=== PATIENT | male | born 1960 | race Caucasian/White ===

== ENCOUNTER 2018-03-24 15:02 | Emergency (ER) | payer BC ==
[~2018-03-24] VITALS: Ht 167.6 cm; Wt 71.4 kg
[~2018-03-24 15:02] MED LIST: CLBCRM30 EXT; PRED20TA PO; SKINCRE34 TOP
[2018-03-24 15:06] VITALS: TEMP 37.2; Ht 167.6 cm; Wt 71.4 kg
[2018-03-24] MEDS ORDERED: LORAZEPAM 2 MG/ML 1 ML VIAL IV STA ×2 (15:14→16:12)
[2018-03-24] MEDS ORDERED: MULTI-VITAMIN INFUSION INJ 10 ML, THIAMINE HCL INJ 100 MG, FoLIC ACID INJ 1 MG in SODIU... IV ONE (15:15)
[2018-03-24 15:33] LABS: BASO % 0.8 %; BASO ABS # 0.08 K/uL (0-0.2); EOS % 0.4 %; EOS ABS # 0.04 K/uL (0-0.5); HEMATOCRIT 43.2 % (42-52); HEMOGLOBIN 14.8 g/dL (14.0-18.0); IG# 0.03 K/uL (0.00-0.02); LYMPH % 13.4 %; LYMPH ABS # 1.31 K/uL (1.2-3.4); MEAN CELL VOLUME 91.7 fL (80-100); MEAN CORPUSCULAR HEMOGLOBIN 31.4 pg (25-34); MEAN CORPUSCULAR HGB CONC 34.3 g/dl (32-36); MEAN PLATELET VOLUME 8.6 fL (7.4-10.4); MONO % 9.9 %; MONO ABS # 0.97 K/uL (0.11-0.59); NEUT % 75.2 %; NEUT ABS # 7.38 K/uL (1.4-6.5); PLATELET COUNT 225 K/uL (130-400); RED CELL DISTRIBUTION WIDTH CV 15.4 % (11.5-14.5); RED CELL DISTRIBUTION WIDTH SD 52.2 fL (36.4-46.3); WHITE BLOOD COUNT 9.81 K/uL (4.8-10.8)
[2018-03-24 15:44] LABS: PTT PATIENT 26.1 SECONDS (21.0-31.0)
--- NOTE | 2018-03-24 16:00 | DIAGNOSTIC IMAGING REPORT ---
HEAD WITHOUT CONTRAST (CT) CLINICAL HISTORY: 57 years-old Male presenting with tremors eval for mass. TECHNIQUE: Multidetector CT imaging of the head was performed without the use of intravenous contrast. IV contrast: None. A dose lowering technique was used consistent with the principles of ALARA (as low as reasonably achievable). COMPARISON: 05/14/2008. CT DOSE (mGy.cm): The estimated cumulative dose is 537.48 mGy.cm. FINDINGS: Outside Repairer Special topogram: Unremarkable. Ventricles and sulci normal in size. Brain parenchyma normal in appearance with preserved granados-white differentiation. No mass effect or midline shift. No hemorrhage or acute territorial infarct. No extra-axial fluid collection. Paranasal sinuses and mastoid air cells clear. Calvarium intact. IMPRESSION: 1. No acute intracranial abnormality. Electronically signed by: Alejandro Soni M.D. 03/24/2018 3:59 PM Dictated Date/Time: 03/24/2018 3:57 PM
[2018-03-24 16:03] LABS: CALCIUM 8.5 mg/dl (8.5-10.1); CREATININE 0.91 mg/dl (0.60-1.40); POTASSIUM 4.2 mmol/L (3.5-5.1); TOTAL PROTEIN 8.1 gm/dl (6.4-8.2)
[2018-03-24] MEDS ORDERED: CHLORDIAZEPOXIDE 25 MG CAP PO ONE (16:15)
--- NOTE | 2018-03-24 17:37 | EMERGENCY ROOM VISIT NOTE ---
History Report prepared by Anand: Promise Adkins Under the Supervision of: Dr. Rolly Kuhn M.D. First contact with patient: 15:07 Chief Complaint: OTHER COMPLAINT Stated Complaint: LOWER EXTREMITIES/TREMORS History of Present Illness The patient is a 57 year old male who presents to the Emergency Room with complaints of worsening shakiness that started this morning when he woke up. The patient states that he has had shaking in his upper extremities for at least 10 years, but it got worse this morning when he woke up to the point where he could not drink his beer. He also states that he started experiencing slight shakiness in his legs, which he normally does not have. The patient denies numbness, one-sided weakness, shortness of breath, chest pain, abdominal pain, fever, difficulty swallowing, and headaches. The patient states that he drinks alcohol and had 1 beer today. Per nurse, the patient normally drinks 3-4 quarts per day. The patient notes that his uncle has Parkinson's disease. Source of History: patient, nursing staff Onset: this morning Position: arm (bilateral), leg (bilateral) Quality: other (shaking) Timing: worsening Associated Symptoms: No fevers, No headache, No chest pain, No SOB, No abdominal pain, No weakness (one-sided), No numbness Note: Denies: difficulty swallowing Review of Systems See HPI for pertinent positives & negatives. A total of 10 systems reviewed and were otherwise negative. Past Medical & Surgical Medical Problems: (1) ALCOHOL ABUSE-CONTINUOUS (2) CANNABIS ABUSE-UNSPEC (3) Cholecystectomy (4) FAM HX-ISCHEM HEART DIS (5) FAMILY HISTORY OF OTHER CARDIOVASCULAR DISEASES (6) History of tonsillectomy (7) TOBACCO USE DISORDER Family History FHx: Parkinson's disease Social History Smoking Status: Current Every Day Smoker Alcohol Use: heavy Drug Use: marijuana Marital Status: single Occupation Status: employed Current/Historical Medications No Active Prescriptions or Reported Meds Allergies Coded Allergies: Morphine (Verified Allergy, Intermediate, SYNCOPE, 03/24/18) Physical Exam Vital Signs Date Time Temp Pulse Resp B/P (MAP) Pulse Ox O2 Delivery O2 Flow Rate FiO2 03/24/18 16:31 83 19 138/78 92 Room Air 03/24/18 16:19 93 17 139/79 94 Room Air 03/24/18 15:40 94 26 143/73 92 Room Air 03/24/18 15:29 96 03/24/18 15:06 37.2 104 18 150/100 94 Room Air Physical Exam Constitutional: Vital signs reviewed. Eyes: Pupils are equal round reactive to light. Conjunctiva are noninjected. ENT: Pharynx is clear without erythema or exudate. Mucous membranes are moist. Neck supple without meningeal signs. Respiratory: Clear to auscultation bilaterally. Breath sounds are equal bilaterally. Cardiovascular: Regular rate and rhythm. No rubs or gallops. GI: Soft, nondistended and nontender. Bowel sounds are present. Musculoskeletal: No peripheral edema. No lower extremity tenderness. Integumentary: No cyanosis. Neurological: The patient is awake and alert. Cranial nerves II-XII are intact. Motor is 5 out of 5 all extremities. Sensation is intact to light touch all extremities. Normal speech. No pronator drift. Upper extremity limb ataxia. Resting tremor in upper extremities. Slight tremor in the feet. Asterixis. Psychiatric: Anxious appearing. Medical Decision & Procedures ER Provider Diagnostic Interpretation: Radiology results as stated below per my review and the radiologist's interpretation: HEAD WITHOUT CONTRAST (CT) CLINICAL HISTORY: 57 years-old Male presenting with tremors eval for mass. TECHNIQUE: Multidetector CT imaging of the head was performed without the use of intravenous contrast. IV contrast: None. A dose lowering technique was used consistent with the principles of ALARA (as low as reasonably achievable). COMPARISON: 05/14/2008. CT DOSE (mGy.cm): The estimated cumulative dose is 537.48 mGy.cm. FINDINGS: Shuttle Driver topogram: Unremarkable. Ventricles and sulci normal in size. Brain parenchyma normal in appearance with preserved granados-white differentiation. No mass effect or midline shift. No hemorrhage or acute territorial infarct. No extra-axial fluid collection. Paranasal sinuses and mastoid air cells clear. Calvarium intact. IMPRESSION: 1. No acute intracranial abnormality. Electronically signed by: Alejandro Soni M.D. 03/24/2018 3:59 PM Dictated Date/Time: 03/24/2018 3:57 PM Laboratory Results 03/24/18 15:24 Red Blood Count 4.71, Mean Corpuscular Volume 91.7, Mean Corpuscular Hemoglobin 31.4, Mean Corpuscular Hemoglobin Concent 34.3, Mean Platelet Volume 8.6, Neutrophils (%) (Auto) 75.2, Lymphocytes (%) (Auto) 13.4, Monocytes (%) (Auto) 9.9, Eosinophils (%) (Auto) 0.4, Basophils (%) (Auto) 0.8, Neutrophils # (Auto) 7.38, Lymphocytes # (Auto) 1.31, Monocytes # (Auto) 0.97, Eosinophils # (Auto) 0.04, Basophils # (Auto) 0.08 03/24/18 15:24 Test 03/24/18 15:23 03/24/18 15:24 Prothrombin Time 10.5 SECONDS (9.0-12.0) Prothromb Time International Ratio 1.0 (0.9-1.1) Activated Partial Thromboplast Time 26.1 SECONDS (21.0-31.0) Partial Thromboplastin Ratio 1.0 Ammonia 14.4 umol/L (11-32) White Blood Count 9.81 K/uL (4.8-10.8) Red Blood Count 4.71 M/uL (4.7-6.1) Hemoglobin 14.8 g/dL (14.0-18.0) Hematocrit 43.2 % (42-52) Mean Corpuscular Volume 91.7 fL (80-100) Mean Corpuscular Hemoglobin 31.4 pg (25-34) Mean Corpuscular Hemoglobin Concent 34.3 g/dl (32-36) Platelet Count 225 K/uL (130-400) Mean Platelet Volume 8.6 fL (7.4-10.4) Neutrophils (%) (Auto) 75.2 % Lymphocytes (%) (Auto) 13.4 % Monocytes (%) (Auto) 9.9 % Eosinophils (%) (Auto) 0.4 % Basophils (%) (Auto) 0.8 % Neutrophils # (Auto) 7.38 K/uL (1.4-6.5) Lymphocytes # (Auto) 1.31 K/uL (1.2-3.4) Monocytes # (Auto) 0.97 K/uL (0.11-0.59) Eosinophils # (Auto) 0.04 K/uL (0-0.5) Basophils # (Auto) 0.08 K/uL (0-0.2) RDW Standard Deviation 52.2 fL (36.4-46.3) RDW Coefficient of Variation 15.4 % (11.5-14.5) Immature Granulocyte % (Auto) 0.3 % Immature Granulocyte # (Auto) 0.03 K/uL (0.00-0.02) Anion Gap 8.0 mmol/L (3-11) Est Creatinine Clear Calc Drug Dose 79.8 ml/min Estimated GFR () 107.3 Estimated GFR (Non- 92.6 BUN/Creatinine Ratio 10.0 (10-20) Calcium Level 8.5 mg/dl (8.5-10.1) Magnesium Level 2.3 mg/dl (1.8-2.4) Total Bilirubin 0.4 mg/dl (0.2-1) Direct Bilirubin 0.1 mg/dl (0-0.2) Aspartate Amino Transf (AST/SGOT) 37 U/L (15-37) Alanine Aminotransferase (ALT/SGPT) 40 U/L (12-78) Alkaline Phosphatase 112 U/L (45-117) Total Protein 8.1 gm/dl (6.4-8.2) Albumin 4.0 gm/dl (3.4-5.0) Lipase 129 U/L (73-393) Thyroid Stimulating Hormone (TSH) 0.463 uIu/ml (0.300-4.500) Ethyl Alcohol mg/dL < 3.0 mg/dl (0-3) Laboratory results as reviewed by me. Medications Administered Medications (Trade) Dose Ordered Sig/Ilya Route Start Time Stop Time Status Last Admin Dose Admin Lorazepam (Ativan Inj) 1 mg NOW STAT IV 03/24/18 15:14 03/24/18 15:16 DC 03/24/18 15:29 1 MG Multivitamins 10 ml/Thiamine HCl 100 mg/Folic Acid 1 mg/Sodium Chloride 1,011.2 ml @ 500 mls/ hr Q2H2M ONCE IV 03/24/18 15:15 03/24/18 17:16 DC 03/24/18 15:40 500 MLS/HR Chlordiazepoxide (Librium Cap) 50 mg NOW ONCE PO 03/24/18 16:15 03/24/18 16:16 DC 03/24/18 16:07 50 MG Lorazepam (Ativan Inj) 1 mg NOW STAT IV 8/18/18 16:12 03/24/18 16:13 DC 03/24/18 16:25 1 MG ED Course 1509: The patient was evaluated in room A11B. A complete history and physical exam was performed. 1514: Administered Ativan Inj 1 mg IV. 1515: Administered Multivitamins 10 ml/Thiamine HCl 100 mg/Folic Acid 1 mg/ Sodium Chloride 1011.2 ml @ 500 mls/hr IV. 1556: I checked on the patient but he was not in the room. The nurse stated that the Ativan helped his tremors. 1605: I checked on the patient and found him sitting comfortably and watching TV. He appeared to have mild tremors in his upper extremities. I told the patient that he is probably withdrawing from alcohol. The patient stated that he has no interest in detoxification or rehabilitation. The patient noted that he just wants to go home and drink. I recommended the patient follow up with his PCP for reevaluation. 1612: Administered Ativan Inj 1 mg IV. 1615: Administered Librium Cap 50 mg PO. 1625: I checked on the patient and updated him on his results. The patient again declined detoxification or rehabilitation. The patient will go home as soon as his fluids are done. Medical Decision This is a 57-year-old male who presents with tremors. Differential diagnosis includes alcohol withdrawal, hepatic encephalopathy, Wernicke Korsakoff, intracranial mass, intracranial hemorrhage, simple partial seizure, metabolic derangement, Parkinson's disease. I did perform a limited focused review of portions of the patient's old chart on the electronic medical record. The patient has had no recent pertinent visits to this hospital. I did evaluate the patient as noted above. The patient is dependent on alcohol and states that he could not drink very much today because he had such bad tremors. He has had tremors for over 10 years. They got worse this morning. On exam is neurologically intact other than significant tremors causing upper limb ataxia. IV access was established. The patient was placed on a continuous residential monitor. I did treat him with Ativan IV. He is also given a banana bag IV. I did order and personally review the patient's 12-lead EKG as described above. I did order and review the patient's blood work as noted in the electronic medical record. LFTs are normal. Ammonia is not elevate. Alcohol level is undetectable. I did order a CT of the head. I did review the images myself as well as the radiology report as described above. CT does not show any evidence of mass or acute abnormality. I did discuss the test results with the patient. His tremors are improved but still present. He appears quite comfortable. Is watching television. He is slightly hypertensive but he does not show signs of delirium tremens. I did treat him with additional Ativan 1 mg IV and Librium 50 mg orally. I did offer admission for detox or referral to rehab. Patient declined stating that he did not want to quit drinking alcohol. He was advised to follow-up closely with his doctor for further evaluation of his tremors. He was discharged in good condition. Medication Reconcilliation Current Medication List: was personally reviewed by me Blood Pressure Screening Patient's blood pressure: Elevated blood pressure Blood pressure disposition: Referred to PCP Impression Primary Impression: Tremor Additional Impressions: Alcohol withdrawal Alcohol dependence Scribe Attestation The scribe's documentation has been prepared under my direct and personally reviewed by me in its entirety. I confirm that the note above accurately reflects all work, treatment, procedures, and medical decision making performed by me. Departure Information Dispostion Home / Self-Care Prescriptions No Active Prescriptions or Reported Meds Referrals Mey Herman D.O. (PCP) Forms HOME CARE DOCUMENTATION FORM, IMPORTANT VISIT INFORMATION, WORK / SCHOOL INSTRUCTIONS Patient Instructions My [facility] Additional Instructions You have been examined and treated today on an emergency basis only. This is not a substitute for, or an effort to provide, complete comprehensive medical care. It is impossible to recognize and treat all injuries or illnesses in a single emergency department visit. It is therefore important that you follow up closely with your physician to determine the cause of your symptoms. Call as soon as possible for an appointment. Return for worsening symptoms or if you develop fever, vomiting, hallucinations, confusion or any other concerning symptoms. Problem Qualifiers Additional Impressions: Alcohol withdrawal Complication of substance-induced condition: uncomplicated Qualified Codes: F10.230 - Alcohol dependence with withdrawal, uncomplicated Alcohol dependence Substance use status: in withdrawal Complication of substance-induced condition: uncomplicated Qualified Codes: F10.230 - Alcohol dependence with withdrawal, uncomplicated
[2018-03-24 18:01] VITALS: BP 144/81; PULSE 80; O2SAT 96
== END 2018-03-24 18:28 | disposition home or self-care (01) ==
LOC: EDBD 15:02 → C.EDA 15:04
DX: R25.1 Tremor, unspecified (principal); F10.230 Alcohol dependence with withdrawal, uncomplicated; Z82.0 Family history of epilepsy and other diseases of the nervous system; F17.200 Nicotine dependence, unspecified, uncomplicated; Z88.6 Allergy status to analgesic agent

== ENCOUNTER 2018-10-05 13:34 | Inpatient (IN) ==
[2018-10-05] MEDS ORDERED: PIPERACILL/TAZOBAC CONSULT ACTIVE PRN ×2 (14:23→17:13)
[2018-10-05] MEDS ORDERED: PIPERACILLIN/TAZOBACTAM 4.5 GM/120 ML BAG IV ONE (14:23)
[2018-10-05] MEDS ORDERED: SODIUM CHLORIDE 0.9% 1000ML 1,000 ML IV ONE (14:25)
--- NOTE | 2018-10-05 15:53 | History & Physical Report ---
Date of Service October 05, 2018 Assessment & Plan (1) Abscess of sigmoid colon due to diverticulitis: - CT with severe sigmoid diverticulitis with evidence of microperforation and small peridiverticular abscesses with largest measuring 28 mm - Likely this started approx. 3 weeks ago with the onset of the symptoms as he also had N/V and leukocytosis - currently no leukocytosis and remains afebrile - Zosyn Q8H; BCx pending - Pain management with Tylenol and Dilaudid PRN - NPO for now with sips/chips - Gen Surg consulted - discussed with Dr. Reyes - recommend limited po intake for 3-4 days with rescan prior to D/C; possible hospitalization x 5-7 days and if worsening symptoms may need temporary colostomy Present on Admission?: Yes (2) Alcohol abuse: - Reports drinking a couple drafts at the club nightly and usually takes 2 quarts home each night - denies H/O ETOH withdrawal or seizures - last drink was 6 PM on 10/04 - AWSS protocol with banana bag x 1 then resume NSS at 80 mL/hr - Will start folic acid 1 mg daily and thiamine 100 mg daily in AM - Gabapentin taper given heavy ETOH use - will use reduced dosing - Currently no active signs of withdrawal - has a chronic tremor x "years" thought to be ETOH induced Present on Admission?: Yes (3) Tremor: - ETOH induced vs essential - reports FMHx of Parkinsons but was told he does not exhibit this - Not on any medications to control this - no intervention necessary at this time Present on Admission?: Yes (4) Smoking: - Did not want a nicotine patch but states he would ask for one if needed - will place PRN Present on Admission?: Yes History of Present Illness Chief Complaint: Abdominal pain x few weeks Primary Care Provider: Mey Herman DO Mr. Kaur is a 58 y/o male with PMHx of Tremor and ETOH Abuse who presents for abdominal pain and CT findings. Pt reports he has had LLQ abdominal pain for approximately 3 weeks and reports associated diarrhea. He was seen in the ED around this time and symptomatically treated. States symptoms waxed and waned since this time. States he has been able to eat normally and denies nausea/vomiting. Has had intermittent diarrhea but sometimes it is formed but soft. He denies melena/hematochezia. Last BM was early this AM. Due to ongoing s ymptoms his PCP ordered a CT scan. CT showed severe sigmoid diverticulitis with evidence of microperferation and small peridiverticular abscesses largest being 28 mm and was referred to the ED. He reports pain in the LLQ without radiation. He denies fever/chills. He reports drinking "a couple drafts at the club" and normally goes home with "a couple quarts" of beer and this is normally a nightly thing. He states he has never experienced withdrawal from ETOH or seizure activity. He reports he has gone a few days without drinking in the past without issue. Last drink was around 6 PM on 10/04. Has a chronic tremor x "years" but does not appear to be actively withdrawing at this time. Allergies Allergy/AdvReac Type Severity Reaction Status Date / Time morphine Allergy Intermediate SYNCOPE Verified 10/05/18 15:53 Home Medications Home Medications Medication Instructions Recorded Confirmed Type No Known Home Medications 10/05/18 10/05/18 History Past Med/Surg History Medical History Tremor (Chronic) Surgical History History of cholecystectomy (Resolved) History of tonsillectomy Family History Other No significant family history Social History Preferred Language: Bulgarian Communication Ability: Effective Human Factors Specialist Required: No Beliefs That Will Affect Care: None Current Living Situation: Other Current Living Situation Comment: has roommate Other Information That Helps Us Care for You: No Feels Safe at Home: Yes Safety Concerns: Feels Safe At This Time Smoking Status: Current every day smoker Hx Alcohol Use: Yes Hx Substance Use: No Review of Systems Constitutional: no fever, no chills and no anorexia Eyes: no worsening vision Ear, Nose, Mouth, Throat: no nasal congestion, no sore throat and no dysphagia Respiratory: no cough and no dyspnea Cardiovascular: no chest pain, no palpitations and no edema Gastrointestinal: + abdominal pain, + bloating and + diarrhea/loose stools; no nausea, no vomiting, no constipation, no blood in stools and no melena Genitourinary (Male): no dysuria Musculoskeletal: no muscle weakness and no body aches Integumentary: no rash Neurologic: + tremor(s) Psychiatric: + substance abuse Physical Exam Vital Signs (Past 24 Hours): Last Vital Signs Temp 36.8 C 10/05/18 13:54 Pulse 68 10/05/18 15:20 Resp 22 10/05/18 15:20 BP 113/66 10/05/18 15:08 Pulse Ox 95 10/05/18 15:20 Constitutional: no acute distress, not ill appearing and not intoxicated appearing Eyes: + anicteric sclerae ENMT: Ears: no hearing impairment Throat: uvula midline Neck: trachea midline Respiratory: normal respiratory effort, lungs clear to auscultation no cough Cardiovascular: RRR, no murmur, no edema Gastrointestinal (Abdomen): Inspection/Auscultation: normal bowel sounds Percussion/Palpation: + abdomen tender (LLQ) and abdomen soft; no guarding and abdomen not rigid Musculoskeletal: Head/Neck/Chest: normocephalic, head atraumatic and neck supple Skin: no rashes, warm and dry Neurologic: moves all extremities Motor/Sensory: + tremor (b/l hands/arms and legs) Psychiatric: A+Ox3, euthymic affect Apperance: + disheveled Eye Contact: good eye contact Affect: no anxious affect Mood: no anxious mood Code Status & VTE Plan Code Status FULL RESUSCITATION VTE Prophylaxis Plan VTE Prophylaxis will be ordered: Yes Supervising Physician Co-Signing Physician Notes Attending Attestation - Pt seen/examined, chart reviewed, admission care plan d/w KATHARINA Valle. I agree w/ the sandoval components of her admission documentation. 58yo male with h/o alcohol dependence - denies any prior episode of withdrawal - presenting with LLQ abd pain x [address] abd/pelvis done just prior to admission with severe sigmoid diverticulitis w/ microperforation and several small abscesses. Already seen by gen surg - plan for zosyn, bowel rest, IVF. During my visit he complained of is NPO status. Also w/ c/o mild LLQ pain & diarrhea. PMH, PSH, allergies, meds, sochx, famxh, ros - reviewed VSS, no fever gen - thin, NAD mouth - poor oral dentition heart - RRR, s1, s2 lungs - CTA b/l abd - soft, tender LLQ (mild), BS+, no HSM ext - no edema CT results reviewed labs reviewed A/P: 1. severe sigmoid diverticulitis - complicated by microperforation & abscesses. Agree with NPO, fluids, zosyn, gen surg consultation. 2. alcohol dependence - high risk of withdrawal. Place on withdrawal protocol w/ gabapentin. MVI, thiamine, folic acid. Baudilio Hurd MD
--- NOTE | 2018-10-05 15:57 | Surgery Consultation ---
Date of Consultation October 05, 2018 Assessment & Plan (1) Diverticulitis: Patient will be admitted to the hospital for IV antibiotics IV fluids and bowel rest. I do not think he should have significant p.o. intake for 3-4 days. If he were to worsen and require surgery is likely he would need a temporary colostomy. We will likely re-scan him prior to discharge to be sure the pelvic infection is improving. I suspect he will be in the hospital for 5-7 days and require at least 2-3 weeks of antibiotics. I will asked the infectious disease doctors to see the patient tomorrow. I will follow him closely during his hospitalization. History of Present Illness History of Present Illness Patient is a 58-year-old male who presents the emergency room with lower abdominal pain. A CT scan was performed which shows relatively severe diverticulitis of the sigmoid colon with contained perforation and 2.8 cm abscess. His white blood cell count is 8.5. There is no evidence of obstruction. He was in the emergency room approximately 1 month ago with lower abdominal pain. Patient is being admitted to the hospital with diverticulitis. Allergies Allergy/AdvReac Type Severity Reaction Status Date / Time morphine Allergy Intermediate SYNCOPE Verified 10/05/18 15:53 Home Medications Home Medications Medication Instructions Recorded Confirmed Type No Known Home Medications 10/05/18 10/05/18 History Patient History Medical History Tremor (Chronic) Surgical History History of cholecystectomy (Resolved) Family History Other No significant family history Social History Preferred Language: Frisian Feels Safe at Home: Yes Smoking Status: Current every day smoker Hx Alcohol Use: Yes Review of Systems No complaint of fever or headache please see HPI for positive review of systems 10 other systems are negative Physical Exam Vital Signs (Past 24 Hours): Last Vital Signs Temp 36.8 C 10/05/18 13:54 Pulse 68 10/05/18 15:20 Resp 22 10/05/18 15:20 BP 113/66 10/05/18 15:08 Pulse Ox 95 10/05/18 15:20 he is awake and alert he is in no distress he does complain of some lower abdominal pain. His vital signs are stable his heart rate is normal his HEENT exam is grossly normal neck is supple he is breathing comfortably heart regular rate and rhythm his abdomen is flat and soft does have pain to deep palpation in the lower pelvis extremities are warm
[2018-10-05] MEDS ORDERED: ACETAMINOPHEN 325 MG TAB PO PRN (17:13)
[2018-10-05] MEDS ORDERED: MAGNESIUM HYDROXIDE SUSP 30 ML UDC PO PRN (17:13)
[2018-10-05] MEDS ORDERED: ACETAMINOPHEN 65 ML IV PRN (17:13)
[2018-10-05] MEDS ORDERED: ONDANSETRON INJ 2 MG/ML 2 ML VIAL IV PRN (17:13)
[2018-10-05] MEDS ORDERED: ALUMINUM/MAGNESIUM SUSP 30 ML UDC PO PRN (17:13)
[2018-10-05] MEDS ORDERED: POLYETHYLENE (MIRALAX) 17 GM PACK PO PRN (17:13)
[2018-10-05] MEDS ORDERED: NICOTINE 21 MG/24 HR TDSY TD PRN (17:13)
[2018-10-05] MEDS ORDERED: HYDROmorphone INJ 0.5 MG/0.5 ML SYR IV PRN ×2 (17:13→19:11)
[2018-10-05] MEDS ORDERED: GABAPENTIN 600MG ALCOHOL WITHDRAWAL LOAD PO STA (17:13)
[2018-10-05] MEDS ORDERED: LORazepam 1 MG/2 ML VIAL IV PRN (17:13)
[2018-10-05] MEDS ORDERED: GABAPENTIN 600 MG TAB PO ONE (18:00)
[2018-10-05] MEDS ORDERED: MULTI-VITAMIN INFUSION 10 ML, THIAMINE HCL 100 MG, FOLIC ACID 1 MG in SODIUM CHLORIDE 0... IV SCH (18:00)
[2018-10-05 18:59] LABS: Creatinine Clr Calc Pharmacy 152.7 ml/min; Est GFR (Non-African American) 121.7
[2018-10-05] MEDS: SODIUM CHLORIDE 0.9% 1000ML 1,000 ML IV SCH (20:56)
[2018-10-05] MEDS: PIPERACILLIN/TAZOBACTAM 3.375 GM in DEXTROSE 5% 100 ML IV SCH (20:57)
--- NOTE | 2018-10-05 21:12 | Emergency Department Note ---
Entered by Stacy Schroeder acting as a scribe for Davy Bojorquez MD History of Present Illness General Chief complaint: Abdominal Pain Stated complaint: INFECTION IN COLON, SENT FROM CT Time Seen by Provider: 10/05/18 14:21 Source: patient Mode of arrival: ambulatory Limitations: no limitations History of Present Illness Provider complaint: Abd pain Onset (ago): week(s) 2 Location: abdomen Severity: moderate Pain Consistency: + constant Maximum Pain Intensity: 7 Associated symptoms: + denies other symptoms and + other (bowel changes, urinary sx); no chest pain and no fever/chills Treatments prior to arrival: none The patient is a 58 year old white male w/ PMHx of tremors and cholecystectomy who presents to the ED w/ CC of abd pain beginning a few weeks ago. Abd pain is lower, moderate in severity and constant since onset. He shares that he went to his PCP today for blood work and CT scan, before sent over to ED for additional evaluation. He denies any fevers, chills, CP, bowel changes, urinary sx, nausea, vomiting, or any other sx at this time. He notes that he has is allergic to morphine. Patient lastly shares regular alcohol and tobacco use. 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 and A total of 10 systems reviewed and were otherwise negative Physical Exam Vital Signs Vital Signs - 24 hr 10/05/18 13:54 10/05/18 14:29 10/05/18 15:08 Temperature 36.8 C Temperature Source Oral Sepsis Recent Fever Within 48 Hours No Sepsis New/Unexplained Change in Mental Status No Sepsis Action Taken by Nursing No Action Required Pulse Rate 103 H 68 68 Pulse Rate from SpO2 Sensor 68 Respiratory Rate 18 18 21 Respiratory Effort / Characteristics Non-Labored Respiratory Depth Normal Respiratory Pattern Regular Blood Pressure 101/67 100/74 113/66 Blood Pressure Mean 78 82 81 Blood Pressure Position Sitting Pulse Oximetry 99 94 Oxygen Delivery Method Room Air 10/05/18 15:10 10/05/18 15:20 10/05/18 15:30 Temperature Temperature Source Sepsis Recent Fever Within 48 Hours Sepsis New/Unexplained Change in Mental Status Sepsis Action Taken by Nursing Pulse Rate 68 68 80 Pulse Rate from SpO2 Sensor 68 68 79 Respiratory Rate 19 22 22 Respiratory Effort / Characteristics Respiratory Depth Respiratory Pattern Blood Pressure 112/71 Blood Pressure Mean 84 Blood Pressure Position Pulse Oximetry 95 95 97 Oxygen Delivery Method 10/05/18 15:40 10/05/18 15:50 10/05/18 15:59 Temperature Temperature Source Sepsis Recent Fever Within 48 Hours Sepsis New/Unexplained Change in Mental Status Sepsis Action Taken by Nursing Pulse Rate 69 68 Pulse Rate from SpO2 Sensor 70 68 Respiratory Rate 24 14 Respiratory Effort / Characteristics Respiratory Depth Respiratory Pattern Regular Blood Pressure Blood Pressure Mean Blood Pressure Position Pulse Oximetry 97 96 Oxygen Delivery Method Room Air 10/05/18 16:00 Temperature Temperature Source Sepsis Recent Fever Within 48 Hours Sepsis New/Unexplained Change in Mental Status Sepsis Action Taken by Nursing Pulse Rate 70 Pulse Rate from SpO2 Sensor 69 Respiratory Rate 21 Respiratory Effort / Characteristics Respiratory Depth Respiratory Pattern Blood Pressure 108/87 Blood Pressure Mean 94 Blood Pressure Position Pulse Oximetry 97 Oxygen Delivery Method GENERAL: Well appearing, well nourished, NAD, non-toxic. EYE EXAM: Normal conjunctiva. PERRL, no anisocoria and EOM's grossly intact w/o pain. OROPHARYNX: Moist MM. Poor dentition NECK: Supple, no nuchal rigidity, no adenopathy, non-tender. No signs of meningismus. LUNGS: Clear to auscultation. Normal chest wall mechanics. HEART: NSR, no MRG. ABDOMEN: Abdomen soft, normo-active bowel sounds, no masses, no rebound or guarding. LLQ TTP. BACK: No CVA TTP. SKIN: No rashes and no bruising. UPPER EXTREMITIES: Upper extremities are grossly normal. LOWER EXTREMITIES: No pitting edema. No calf pain. NEURO EXAM: A and O x3. GCS 15. Cranial nerves II-XII grossly intact, normal speech, 5/5 strength throughout Moves all 4 extremities on command w/o issue. Course 1427: Past medical records reviewed. The patient was evaluated in room C11B, and a complete history and physical examination were performed. 1503: Discussed with Dr. Reyes, general sugery 1508: Discussed with Dr. Reyes who notes he does not need IR draining, but recommends admission and abx 1513: [facility] Hospitalist paged. 1518: Discussed with Wanda Hodges PA-C who accepts patient for admission. Administered Medications Piperacillin Sod/Tazobactam (Sod 3.375 gm/ Dextrose) 115 mls @ 28.75 mls/hr IV Q8H RASHAD Stop: 10/15/18 20:59 Last Admin: 10/05/18 20:57 Dose: 28.8 mls/hr Documented by: [id number] Sodium Chloride (Nss 1000ml) 1,000 mls @ 80 mls/hr IV .[id number] RASHAD Stop: 11/04/18 19:59 Last Admin: 10/05/18 20:56 Dose: 80 mls/hr Documented by: [id number] Miscellaneous (Remove Nicoderm Patch) 1 ea N/A HS RASHAD Stop: 11/04/18 20:59 Last Admin: 10/05/18 20:56 Dose: Not Given Documented by: [id number] Discontinued Medications Gabapentin (Neurontin) 600 mg PO NOW ONE Stop: 10/05/18 18:01 Last Admin: 10/05/18 17:52 Dose: 600 mg Documented by: [id number] Piperacillin Sod/Tazobactam Sod (Zosyn) 4.5 gm in 120 mls @ 240 mls/hr IV NOW ONE Stop: 10/05/18 14:52 Last Infusion: 10/05/18 15:58 Dose: 0 mls/hr Documented by: [id number] Admin: 10/05/18 15:07 Dose: 240 mls/hr Documented by: [id number] Sodium Chloride (Nss 1000ml) 1,000 mls @ 999 mls/hr IV .Q1H1M ONE Stop: 10/05/18 15:25 Last Infusion: 10/05/18 16:13 Dose: 0 mls/hr Documented by: [id number] Admin: 10/05/18 15:09 Dose: 999 mls/hr Documented by: [id number] Multivitamins 10 ml/ Thiamine HCl 100 mg/ Folic Acid 1 mg/Sodium Chloride 1,011.2 mls @ 500 mls/hr IV .Q2H2M RASHAD Stop: 10/05/18 20:01 Last Admin: 10/05/18 18:38 Dose: 500 mls/hr Documented by: [id number] Miscellaneous Information (Consult) 1 ea N/A UD PRN PRN Reason: Consult Stop: 11/04/18 14:22 Last Admin: 10/05/18 15:09 Dose: 1 ea Documented by: [id number] Medical Decision Making Medical Records Attestation: I reviewed the patient's medical records. Home Medications Current Medication List: was personally reviewed by me Laboratory Data Attestation: I reviewed the patient's lab results. Result diagrams: 10/05/18 17:53 Lab Results 10/05/18 10/05/18 Range/Units 17:53 17:53 Creatinine 0.47 L (0.6-1.4) mg/dl Est Cr Clr Drug Dosing 152.7 ml/min Est GFR ( Amer) 141.0 Est GFR (Non-Af Amer) 121.7 Hepatitis C Ab Screen Neg (Neg) Imaging Data Radiologist's Impression: PREVIOUS CT OF ABD & PELVIS CT abd pelvis oral and IV con CLINICAL HISTORY: LLQ ABD PAIN AND DIARRHEA COMPARISON STUDY: 06/30/2008 TECHNIQUE: The patient was scanned following administration of dilute oral contrast, and in a dynamic helical fashion during intravenous administration of 93 cc of Optiray 320 A dose lowering technique was utilized adhering to the principles of ALARA. CT DOSE: 673.88 mGycm FINDINGS: Lower chest: The heart is normal in size and configuration, without pericardial effusion. The lung bases and pleural spaces are clear. Liver: There is a 5 mm hypodensity within the left liver anterolaterally. This is too small to characterize but is likely benign. Gallbladder: Surgically absent Spleen: Normal in size and attenuation. Pancreas: Unremarkable. Adrenal glands: Unremarkable. Kidneys: There is a 1 cm right renal cyst. There is a 24 mm left renal cyst. There is no hydronephrosis. Bowel: There are no transition zones indicate bowel obstruction. There is colo drew diverticulosis. There is sausage like thickening of the sigmoid colon. There is infiltration the perisigmoid fat. There are tiny gas bubbles within the mesentery. There are small pericolonic fluid collections consistent with peridiverticular abscesses. There is also a 22 mm fluid collection within. Rectal space likely representing a second abscess. The largest collection measures 28 mm. The appendiceal tip is somewhat bulbous, but this likely secondary to adjacent inflammation.. Peritoneum: There is no evidence for significant ascites. Vasculature: The abdominal aorta is normal in course and caliber. Adenopathy: None. Pelvic viscera: There is mild bladder wall thickening. There is minor prostamegaly. Skeletal structures: No destructive osseous lesions are seen. IMPRESSION: 1. Severe sigmoid diverticulitis with evidence of microperforation and small peridiverticular abscesses. Electronically signed by: Hari Cr M.D. 10/05/2018 1:17 PM Blood Pressure Blood Pressure Findings: Normal blood pressure MDM Narrative The patient is a 58 year old white male w/ PMHx of tremors and cholecystectomy who presents to the ED w/ CC of abd pain beginning a few weeks ago. Etiologies such as appendicitis, diverticulitis, PUD, biliary pathology, UTI, pancreatitis, obstruction, mesenteric ischemia, aortic pathology, infections, inflammatory bowel disease, renal colic, as well as others were entertained. Patient was seen and evaluated the bedside. The patient was relating that he was referral for chronic abdominal pain. Patient did have a CT ordered that showed diverticulitis patient already did have blood work completed having a normal white count. The patient's vital signs are stable afebrile. Patient does have some left lower abdominal discomfort on exam. Blood cultures Zosyn and IV fluids were ordered. I did have the general surgeon review the patient's CT. Dr. Reyes does not believe the patient requires surgical intervention or interventional radiology drainage at this time. I did speak with the on-call hospitalist who agreed to further evaluate treat the patient. Patient was subsequently admitted to the medicine service with a general surgery consult. Impression & Plan Abscess of sigmoid colon due to diverticulitis, Encounter for smoking cessation counseling Discharge Plan Visit Data *Final* Discharge Date/Time: 10/05/18 16:15 Chief Complaint: Abdominal Pain Stated Complaint: INFECTION IN COLON, SENT FROM CT ED Provider: Davy Bojorquez Discharge Problem: Abscess of sigmoid colon due to diverticulitis, Encounter for smoking cessation counseling Patient Disposition: Admitted As Inpatient Discharge Instructions Interventions: ED Discharge Assessment Last Done: 10/05/18 16:15 The scribe's documentation has been prepared under my direction and personally reviewed by me in its entirety. I confirm that the note above accurately reflects all work, treatment, procedures, and medical decision making performed by me.
[2018-10-06] MEDS: GABAPENTIN 100 MG CAP PO SCH ×2 (00:19→05:19)
[2018-10-06] MEDS: PIPERACILLIN/TAZOBACTAM 3.375 GM in DEXTROSE 5% 100 ML IV SCH ×3 (05:19→21:13)
[2018-10-06 07:09] LABS: Hematocrit (blood only) 36.1 % (42-52); Hemoglobin 11.8 g/dL (14.0-18.0); Mean Corpuscular Hgb Conc 32.7 g/dL (32-36); Mean Corpuscular Volume 91.6 fL (80-100); Mean Platelet Volume 8.3 fL (7.4-10.4); Platelet Count 407 K/uL (130-400); RDW Coefficient of Variation 14.2 % (11.5-14.5); RDW Standard Deviation 47.8 fL (36.4-46.3); Red Blood Count 3.94 M/uL (4.7-6.1); White Blood Count 8.92 K/uL (4.8-10.8)
--- NOTE | 2018-10-06 07:25 | Progress Note ---
Date of Service October 06, 2018 Assessment & Plan (1) Abscess of sigmoid colon due to diverticulitis: cont ice only- very limited po intake- will adv very slowly- cont iv ATBX- MAY BENEFIT for 1-2 weeks- considering PICC line - with abscess. ID to see for suggestions Subjective afeb- pt seemed to be comfortable sleeping most of night no significant pain med Physical Exam Vital Signs (Past 24 Hours): Last Vital Signs Temp 36.8 C 10/05/18 22:50 Pulse 64 10/05/18 22:50 Resp 16 10/05/18 22:50 BP 133/72 10/05/18 22:50 Pulse Ox 97 10/05/18 22:50 resting comfortably no acute chgs
[2018-10-06 07:42] LABS: BUN Creatinine Ratio 7.2 (10-20); Calcium 8.1 mg/dl (8.5-10.1); Creatinine Clr Calc Pharmacy 125.9 ml/min; Est GFR (African American) 130.3; Est GFR (Non-African American) 112.4; Potassium 3.5 mmol/L (3.5-5.1)
[2018-10-06] MEDS: FOLIC ACID 1 MG TAB PO SCH (09:33)
[2018-10-06] MEDS: SODIUM CHLORIDE 0.9% 1000ML 1,000 ML IV SCH ×2 (09:33→21:12)
[2018-10-06] MEDS: THIAMINE HCL 100 MG TAB PO SCH (09:33)
--- NOTE | 2018-10-06 11:09 | Infectious Disease Consult ---
Date of Consultation October 06, 2018 Assessment & Plan (1) Abscess of sigmoid colon due to diverticulitis: continue zosyn, follow blood cultures. If pt require surgery, would obtain intaoperative culture. If no + cultures and pt does not require surgery would suggest transition to po augmentin 875mg po bid x 14 days. Alternative would be Levaquin and Flagyl but would attempt to avoid flagyl with active daily etoh use. History of Present Illness Attending Physician: Baudilio Hurd pt admitted with 3 weeks of lower abd pain, LLQ/flank pain. denies f/c at home, no n/v/d, no decreased appetite. was seen by pcp and ct abd obtained, found to have sigmoid diveriticulitis and multiple small abscesses, largest measuring 2.8cm. also found to have microperforation. wbc nml. blood cultures obtained, pending. surgery eval yesterday, no plans for OR unless clinical worsening, repeat ct pending. placed on zosyn, tolerating well. asking to eat, states pain much improved today. h/o etoh abuse, no signs withdrawal on exam. no cp, sob, cough, no gu symptoms. 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 Beliefs That Will Affect Care: None Current Living Situation: Other Current Living Situation Comment: has roommate Other Information That Helps Us Care for You: No Feels Safe at Home: Yes Safety Concerns: Feels Safe At This Time Smoking Status: Current every day smoker Hx Alcohol Use: Yes Hx Substance Use: No Review of Systems all remaining ros reviewed and are negative Physical Exam Vital Signs (Past 24 Hours): Last Vital Signs Temp 36.6 C 10/06/18 07:00 Pulse 93 H 10/06/18 07:00 Resp 15 10/06/18 07:00 BP 115/74 10/06/18 07:00 Pulse Ox 91 10/06/18 07:00 Constitutional: WD/WN, vitals as above Eyes: PERRL, conjunctivae normal, anicteric sclerae ENMT: external ear and nose normal, oropharynx normal Mouth: + poor dentition Neck: normal visual inspection Respiratory: normal respiratory effort, lungs clear to auscultation Cardiovascular: RRR, no murmur, no edema Gastrointestinal (Abdomen): normal bowel sounds, soft, nontender, no hepatos plenomegaly Inspection/Auscultation: abdomen normal to inspection Percussion/Palpation: abdomen soft Musculoskeletal: no cyanosis or clubbing, extremities motor strength 5/5 Skin: no rashes, warm and dry Psychiatric: A+Ox3, euthymic affect
--- NOTE | 2018-10-06 14:32 | Hospitalist Progress Note ---
Date of Service October 06, 2018 Assessment & Plan (1) Abscess of sigmoid colon due to diverticulitis: - CT with severe sigmoid diverticulitis with evidence of microperforation and small peridiverticular abscesses with largest measuring 28 mm - Zosyn IV for empiric coverage; ID following. - Pain control: Tylenol and Dilaudid prn. - Strict NPO with ice sips/chips. - Gen Surg consulted, appreciate input. (2) Alcohol abuse: - Reports drinking a couple drafts at the club nightly and usually takes 2 quarts home each night; denies h/o ETOH withdrawal. - AWSS protocol; received banana bag on 10/05/18. - Folic acid 1 mg daily and Thiamine 100 mg daily in AM - Continue Gabapentin taper given heavy ETOH use. 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 (3) Tremor: - ETOH induced vs essential. - Not currently receiving medication for symptoms. (4) Smoking: - Nicotine patch ordered prn -- pt. was refusing but stated he wanted to smoke a cigarette today. (5) DVT prophylaxis: - Hold pharmacologic ppx for possible procedure. Dispo: Continue NPO status and IV abx. Supervising Physician Co-Signing Physician Notes Attending Attestation - Pt seen/examined, chart reviewed, care plan d/w KATHARINA Marcelo. I agree w/ the sandoval components of her documentation. Pt feels better. LLQ abd pain "much better". +flatus, +loose stool. VSS no fever gen - a/o x 3, no signs of etoh withdrawal heart - RRR lungs - CTA b/l abd - soft, scant tenderness LLQ, BS+, no HSM ext - no edema A/P: severe, complicated diverticulitis with microperf & abscess(es) - clinically improved. cont IV zosyn, fluids, pain meds. cont gabapentin protocol for etoh dependence. appreciate ID & gen surg input. Baudilio Hurd MD Subjective Pt is doing well overall today; he is very frustrated due to NPO status. States he is very hungry and would like to eat. Explained indication for being NPO. Has bilateral tremors, states they are not worsening since being admitted. Physical Exam Vital Signs (Past 24 Hours): Last Vital Signs Temp 36.6 C 10/06/18 07:00 Pulse 93 H 10/06/18 07:00 Resp 15 10/06/18 07:00 BP 115/74 10/06/18 07:00 Pulse Ox 91 10/06/18 07:00 Physical Exam: General: Resting comfortably in no apparent distress; A&OX3 HEENT: NC/AT; PERRLA with EOMI; [place] conjunctiva, MMM. Neck: Supple and nontender Cardiac: RRR w/o murmurs, gallops or rubs Lungs: CTA bilaterally; No rhonchi, wheezing, or rales Abdomen: Bowel normoactive X 4; Nontender to palpation Extremities: Warm. No edema present Neuro: No focal weakness Skin: No rash Results & Data Laboratory Results 10/06/18 10/06/18 10/05/18 Range/Units 06:54 06:54 17:53 WBC 8.92 (4.8-10.8) K/uL RBC 3.94 L (4.7-6.1) M/uL Hgb 11.8 L (14.0-18.0) g/dL Hct 36.1 L (42-52) % MCV 91.6 (80-100) fL MCH 29.9 (25-34) pg MCHC 32.7 (32-36) g/dL RDW Std Deviation 47.8 H (36.4-46.3) fL RDW Coeff of Bret 14.2 (11.5-14.5) % Plt Count 407 H (130-400) K/uL MPV 8.3 (7.4-10.4) fL Sodium 137 (136-145) mmol/L Potassium 3.5 (3.5-5.1) mmol/L Chloride 102 (98-107) mmol/L Carbon Dioxide 29 (21-32) mmol/L Anion Gap 6.0 (3-11) BUN 4 L (7-18) mg/dl Creatinine 0.57 L 0.47 L (0.6-1.4) mg/dl Est Cr Clr Drug Dosing 125.9 152.7 ml/min Est GFR ( Amer) 130.3 141.0 Est GFR (Non-Af Amer) 112.4 121.7 BUN/Creatinine Ratio 7.2 L (10-20) Glucose 84 (70-99) mg/dl Calcium 8.1 L (8.5-10.1) mg/dl Hepatitis C Ab Screen (Neg) 10/05/18 Range/Units 17:53 WBC (4.8-10.8) K/uL RBC (4.7-6.1) M/uL Hgb (14.0-18.0) g/dL Hct (42-52) % MCV (80-100) fL MCH (25-34) pg MCHC (32-36) g/dL RDW Std Deviation (36.4-46.3) fL RDW Coeff of Bret (11.5-14.5) % Plt Count (130-400) K/uL MPV (7.4-10.4) fL Sodium (136-145) mmol/L Potassium (3.5-5.1) mmol/L Chloride (98-107) mmol/L Carbon Dioxide (21-32) mmol/L Anion Gap (3-11) BUN (7-18) mg/dl Creatinine (0.6-1.4) mg/dl Est Cr Clr Drug Dosing ml/min Est GFR ( Amer) Est GFR (Non-Af Amer) BUN/Creatinine Ratio (10-20) Glucose (70-99) mg/dl Calcium (8.5-10.1) mg/dl Hepatitis C Ab Screen Neg (Neg)
[2018-10-07] MEDS: PIPERACILLIN/TAZOBACTAM 3.375 GM in DEXTROSE 5% 100 ML IV SCH ×3 (04:56→21:40)
[2018-10-07 06:37] LABS: Hematocrit (blood only) 37.5 % (42-52); Hemoglobin 12.2 g/dL (14.0-18.0); Mean Corpuscular Hgb Conc 32.5 g/dL (32-36); Mean Corpuscular Volume 91.5 fL (80-100); Mean Platelet Volume 8.2 fL (7.4-10.4); Platelet Count 402 K/uL (130-400); RDW Coefficient of Variation 13.9 % (11.5-14.5); RDW Standard Deviation 46.6 fL (36.4-46.3); White Blood Count 11.36 K/uL (4.8-10.8)
--- NOTE | 2018-10-07 06:43 | Progress Note ---
Date of Service October 07, 2018 Assessment & Plan (1) Abscess of sigmoid colon due to diverticulitis: try clear liquids for lunch- do not advance diet cont IV atbx- consider for 1 week- CT later this week Subjective afeb, min pain- Hungry vatals stable- ++flatus and bm good ur output Physical Exam Vital Signs (Past 24 Hours): Last Vital Signs Temp 36.7 C 10/06/18 23:33 Pulse 75 10/06/18 23:33 Resp 17 10/06/18 23:33 BP 123/77 10/06/18 23:33 Pulse Ox 95 10/06/18 23:33 abd- soft, min pain- good bowel sounds
[2018-10-07 07:12] LABS: BUN Creatinine Ratio 5.7 (10-20); Creatinine Clr Calc Pharmacy 135.4 ml/min; Est GFR (African American) 134.2; Est GFR (Non-African American) 115.8; Magnesium 2.2 mg/dl (1.8-2.4); Potassium 3.5 mmol/L (3.5-5.1)
[2018-10-07] MEDS: THIAMINE HCL 100 MG TAB PO SCH (08:41)
[2018-10-07] MEDS: FOLIC ACID 1 MG TAB PO SCH (08:41)
[2018-10-07] MEDS: SODIUM CHLORIDE 0.9% 1000ML 1,000 ML IV SCH (09:34)
[2018-10-07] MEDS ORDERED: GABAPENTIN 600 MG TAB PO SCH (16:13)
--- NOTE | 2018-10-07 18:25 | Hospitalist Progress Note ---
Date of Service October 07, 2018 Assessment & Plan (1) Abscess of sigmoid colon due to diverticulitis: - CT with severe sigmoid diverticulitis with evidence of microperforation and small peridiverticular abscesses with largest measuring 28 mm - Zosyn IV for empiric coverage; ID following. - Pain control: Tylenol and Dilaudid prn. - Advanced to CLD today; will d/c IVFs. - Gen Surg consulted, appreciate input. (2) Alcohol abuse: - Reports drinking a couple drafts at the club nightly and usually takes 2 quarts home each night; denies h/o ETOH withdrawal. - AWSS protocol; received banana bag on 10/05/18. - Folic acid 1 mg daily and Thiamine 100 mg daily in AM - Continue Gabapentin taper given heavy ETOH use. 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 (3) Tremor: - ETOH induced vs essential. - Not currently receiving medication for symptoms. (4) Smoking: - Nicotine patch ordered prn -- pt. was refusing. (5) DVT prophylaxis: - Hold pharmacologic ppx. Dispo: Discharge pending improvement in PO intake/advancing diet. Supervising Physician Co-Signing Physician Notes Attending Attestation - Chart reviewed in detail, care plan d/w KATHARINA Marcelo. I agree w/ the sandoval components of her documentation. Pt remains hemodynamically stable and is improving with conservative measures (fluids, abx, etc) for complicated sigmoid diverticulitis (microperf, abscess, etc). Appreciate gen surg assistance. Diarrhea not unusual with diverticulitis but if it worsens consider c. diff testing. Baudilio Hurd MD Subjective Pt. is doing well today. He states abd pain resolved, tolerated CLD for lunch. Denies nausea/vomiting. Is having diarrhea. Review of Systems All systems reviewed & are unremarkable except as noted in HPI & below Constitutional: no fever, no chills and no weakness Respiratory: no cough and no dyspnea Cardiovascular: no chest pain, no palpitations and no edema Gastrointestinal: + diarrhea/loose stools; no abdominal pain, no nausea, no vomiting and no constipation Genitourinary (Male): no difficulty urinating Musculoskeletal: no joint pain and no myalgia Allergy / Immunological: no rash Physical Exam Vital Signs (Past 24 Hours): Last Vital Signs Temp 36.8 C 10/07/18 15:09 Pulse 61 10/07/18 15:09 Resp 18 10/07/18 15:09 BP 118/76 10/07/18 15:09 Pulse Ox 95 10/07/18 15:09 Physical Exam: General: Resting comfortably in no apparent distress; A&OX3 HEENT: NC/AT; PERRLA with EOMI; [place] conjunctiva, MMM. Neck: Supple and nontender Cardiac: RRR w/o murmurs, gallops or rubs Lungs: CTA bilaterally; No rhonchi, wheezing, or rales Abdomen: Bowel normoactive X 4; Nontender to palpation Extremities: Warm. No edema present Neuro: No focal weakness Skin: No rash Results & Data Laboratory Results 10/07/18 10/07/18 Range/Units 06:24 06:24 WBC 11.36 H (4.8-10.8) K/uL RBC 4.10 L (4.7-6.1) M/uL Hgb 12.2 L (14.0-18.0) g/dL Hct 37.5 L (42-52) % MCV 91.5 (80-100) fL MCH 29.8 (25-34) pg MCHC 32.5 (32-36) g/dL RDW Std Deviation 46.6 H (36.4-46.3) fL RDW Coeff of Bret 13.9 (11.5-14.5) % Plt Count 402 H (130-400) K/uL MPV 8.2 (7.4-10.4) fL Sodium 136 (136-145) mmol/L Potassium 3.5 (3.5-5.1) mmol/L Chloride 100 (98-107) mmol/L Carbon Dioxide 26 (21-32) mmol/L Anion Gap 10.0 (3-11) BUN 3 L (7-18) mg/dl Creatinine 0.53 L (0.6-1.4) mg/dl Est Cr Clr Drug Dosing 135.4 ml/min Est GFR ( Amer) 134.2 Est GFR (Non-Af Amer) 115.8 BUN/Creatinine Ratio 5.7 L (10-20) Glucose 74 (70-99) mg/dl Calcium 8.0 L (8.5-10.1) mg/dl Magnesium 2.2 (1.8-2.4) mg/dl
[2018-10-08] MEDS: PIPERACILLIN/TAZOBACTAM 3.375 GM in DEXTROSE 5% 100 ML IV SCH ×3 (05:22→21:02)
[2018-10-08] MEDS ORDERED: GABAPENTIN 400 MG CAP PO SCH (06:00)
[2018-10-08 06:40] LABS: Hematocrit (blood only) 39.1 % (42-52); Hemoglobin 12.7 g/dL (14.0-18.0); Mean Corpuscular Hgb Conc 32.5 g/dL (32-36); Mean Corpuscular Volume 92.4 fL (80-100); Mean Platelet Volume 8.6 fL (7.4-10.4); Platelet Count 432 K/uL (130-400); RDW Coefficient of Variation 14.3 % (11.5-14.5); RDW Standard Deviation 47.9 fL (36.4-46.3); Red Blood Count 4.23 M/uL (4.7-6.1); White Blood Count 7.71 K/uL (4.8-10.8)
[2018-10-08 07:04] LABS: BUN Creatinine Ratio 4.8 (10-20); Creatinine Clr Calc Pharmacy 112.1 ml/min; Est GFR (African American) 124.2; Est GFR (Non-African American) 107.2; Potassium 3.9 mmol/L (3.5-5.1)
[2018-10-08] MEDS: FOLIC ACID 1 MG TAB PO SCH (08:47)
[2018-10-08] MEDS: THIAMINE HCL 100 MG TAB PO SCH (08:47)
--- NOTE | 2018-10-08 12:04 | Surgery Progress Note ---
Date of Service October 08, 2018 Assessment & Plan (1) Abscess of sigmoid colon due to diverticulitis: WBC back to normal keep on clears for today cont IV atbx CT later this week Subjective tolerating clears, having loose/liquid BMs, denies pain, no fevers/chills Physical Exam Vital Signs (Past 24 Hours): Last Vital Signs Temp 36.2 C L 10/08/18 07:38 Pulse 64 10/08/18 07:38 Resp 14 10/08/18 07:38 BP 118/74 10/08/18 07:38 Pulse Ox 92 10/08/18 07:38 Gastrointestinal (Abdomen): Inspection/Auscultation: abdomen not distended Percussion/Palpation: abdomen soft; abdomen nontender
--- NOTE | 2018-10-08 14:35 | Hospitalist Progress Note ---
Date of Service October 08, 2018 Assessment & Plan (1) Abscess of sigmoid colon due to diverticulitis: - CT with severe sigmoid diverticulitis with evidence of microperforation and small peridiverticular abscesses with largest measuring 28 mm - Zosyn IV for empiric coverage; ID following. - Pain control: Tylenol and Dilaudid prn. - Continue CLD; no IVFs indicated. - Gen Surg consulted, appreciate input. Will need CT later this week. (2) Alcohol abuse: - Reports drinking a couple drafts at the club nightly and usually takes 2 quarts home each night; denies h/o ETOH withdrawal. - AWSS protocol; received banana bag on 10/05/18. - Folic acid 1 mg daily and Thiamine 100 mg daily in AM - Continue Gabapentin taper given heavy ETOH use. 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 (3) Tremor: - ETOH induced vs essential. - Not currently receiving medication for symptoms. (4) Smoking: - Nicotine patch ordered prn. (5) DVT prophylaxis: - Hold pharmacologic ppx. Dispo: Discharge pending advancing diet. Surgery following. Supervising Physician Co-Signing Physician Notes Attending Attestation - Chart reviewed in detail, care plan d/w PA Mercedez Marcelo. I agree w/ the sandoval components of her documentation. Pt with continued clinical improvement of complicated sigmoid diverticulitis. Gen surg managing diet advancement. Remains on IV antibiotics. Vitals stable, labs acceptable. Again if diarrhea frequency worsens then consider c diff testing. No signs of alcohol withdrawal despite history of alcohol dependence. Baudilio Hurd MD Subjective Pt. is stable, has been tolerating a CLD. No advancement of diet today per surgery recs. Has diarrhea. Denies abd pain, N/V. Review of Systems All systems reviewed & are unremarkable except as noted in HPI & below Constitutional: no fever, no chills, no fatigue, no weakness and no anorexia Respiratory: no cough and no dyspnea Cardiovascular: no chest pain, no palpitations and no edema Gastrointestinal: + diarrhea/loose stools; no abdominal pain, no nausea, no vomiting and no constipation Genitourinary (Male): no difficulty urinating Musculoskeletal: no joint pain Allergy / Immunological: no rash Physical Exam Vital Signs (Past 24 Hours): Last Vital Signs Temp 36.2 C L 10/08/18 07:38 Pulse 64 10/08/18 07:38 Resp 14 10/08/18 07:38 BP 118/74 10/08/18 07:38 Pulse Ox 92 10/08/18 07:38 Physical Exam: General: Resting comfortably in no apparent distress HEENT: NC/AT; PERRLA with EOMI; [place] conjunctiva, MMM. Neck: Supple and nontender Cardiac: RRR Lungs: CTA bilaterally Abdomen: Bowel normoactive X 4; Nontender to palpation Extremities: Warm. No edema present Neuro: No focal weakness Skin: No rash Results & Data Laboratory Results 10/08/18 10/08/18 Range/Units 05:54 05:54 WBC 7.71 (4.8-10.8) K/uL RBC 4.23 L (4.7-6.1) M/uL Hgb 12.7 L (14.0-18.0) g/dL Hct 39.1 L (42-52) % MCV 92.4 (80-100) fL MCH 30.0 (25-34) pg MCHC 32.5 (32-36) g/dL RDW Std Deviation 47.9 H (36.4-46.3) fL RDW Coeff of Bret 14.3 (11.5-14.5) % Plt Count 432 H (130-400) K/uL MPV 8.6 (7.4-10.4) fL Sodium 140 (136-145) mmol/L Potassium 3.9 (3.5-5.1) mmol/L Chloride 105 (98-107) mmol/L Carbon Dioxide 31 (21-32) mmol/L Anion Gap 4.0 (3-11) BUN 3 L (7-18) mg/dl Creatinine 0.64 (0.6-1.4) mg/dl Est Cr Clr Drug Dosing 112.1 ml/min Est GFR ( Amer) 124.2 Est GFR (Non-Af Amer) 107.2 BUN/Creatinine Ratio 4.8 L (10-20) Glucose 91 (70-99) mg/dl Calcium 8.0 L (8.5-10.1) mg/dl
--- NOTE | 2018-10-08 15:46 | Infectious Disease Progress Nt ---
Date of Service October 08, 2018 Assessment & Plan (1) Abscess of sigmoid colon due to diverticulitis: sPatient with diverticulitis with abscess, to be continued on IV antibiotics, to remain n.p.o. for now. If outpatient IV therapy desired, may want to consider use of ertapenem. For now we will continue on Zosyn. Follow- up CT later this week. Will follow. Subjective Patient seen in follow-up for diverticulitis. Feeling better, tolerating clear liquid diet. No fever, no increase in abdominal pain. Review of Systems All systems reviewed & are unremarkable except as noted in HPI & below Physical Exam Vital Signs (Past 24 Hours): Last Vital Signs Temp 36.5 C 10/08/18 14:49 Pulse 64 10/08/18 14:49 Resp 16 10/08/18 14:49 BP 94/63 L 10/08/18 14:49 Pulse Ox 97 10/08/18 14:49 Constitutional: WD/WN, vitals as above comfortable; no acute distress Eyes: PERRL, conjunctivae normal, anicteric sclerae ENMT: external ear and nose normal, oropharynx normal Neck: trachea midline, no thyromegaly neck nontender Respiratory: normal respiratory effort, lungs clear to auscultation normal percussion; no respiratory distress Cardiovascular: Rate/Rhythm: regular rate and regular rhythm Heart Sounds: normal S1 and normal S2; no gallop, no murmur and no cardiac rub Gastrointestinal (Abdomen): Inspection/Auscultation: abdomen normal to inspection and normal bowel sounds Percussion/Palpation: + abdomen tender (Left lower quadrant); no hepatosplenomegaly Musculoskeletal: no cyanosis or clubbing, extremities motor strength 5/5 No spinal tenderness, no joint swelling or erythema Skin: no rashes, warm and dry no lesions Neurologic: moves all extremities and awake; no focal motor deficits Motor/Sensory: no sensory deficit Psychiatric: A+Ox3, euthymic affect Lymphatic: no cervical or axillary lymphadenopathy no inguinal lymphadenopathy Results & Data Laboratory Results Short CBC 10/08/18 Range/Units 05:54 WBC 7.71 (4.8-10.8) K/uL Hgb 12.7 L (14.0-18.0) g/dL Hct 39.1 L (42-52) % Plt Count 432 H (130-400) K/uL BMP 10/08/18 05:54 Sodium 140 Potassium 3.9 Chloride 105 Carbon Dioxide 31 BUN 3 L Creatinine 0.64 Glucose 91 Calcium 8.0 L Diagnostic Findings Microbiology 10/05/18 14:57 Blood Blood Culture - Preliminary No growth to date. 10/05/18 14:38 Blood Blood Culture - Preliminary No growth to date.
[2018-10-09] MEDS: PIPERACILLIN/TAZOBACTAM 3.375 GM in DEXTROSE 5% 100 ML IV SCH ×3 (05:28→21:23)
[2018-10-09] MEDS ORDERED: GABAPENTIN 100 MG CAP PO SCH (06:00)
[2018-10-09] MEDS ORDERED: GABAPENTIN 400 MG CAP PO SCH (06:00)
--- NOTE | 2018-10-09 07:01 | Progress Note ---
Date of Service October 09, 2018 Assessment & Plan (1) Abscess of sigmoid colon due to diverticulitis: Cont IV atbx, adv to full liquids for lunch discussed picc line with pt- would be best if on IV atbx- he said he will think about it- CT later this week Subjective overall very stable - tolerating clear liquids Physical Exam Vital Signs (Past 24 Hours): Last Vital Signs Temp 36.6 C 10/08/18 23:31 Pulse 76 10/08/18 23:31 Resp 15 10/08/18 23:31 BP 115/73 10/08/18 23:31 Pulse Ox 97 10/08/18 23:31 abd- flat, soft, min tenderness
[2018-10-09 07:21] LABS: Albumin Level 2.2 gm/dl (3.4-5.0); BUN Creatinine Ratio 5.4 (10-20); Calcium 8.1 mg/dl (8.5-10.1); Creatinine Clr Calc Pharmacy 113.9 ml/min; Est GFR (Non-African American) 107.9; Magnesium 2.2 mg/dl (1.8-2.4); Potassium 3.4 mmol/L (3.5-5.1)
[2018-10-09 07:24] LABS: Albumin Globulin Ratio 0.6 (0.9-2); Bilirubin,Total 0.2 mg/dl (0.2-1); Total Protein 6.2 gm/dl (6.4-8.2)
[2018-10-09] MEDS ORDERED: POTASSIUM CHLORIDE 20 MEQ TABCR PO STA (08:06)
[2018-10-09] MEDS: FOLIC ACID 1 MG TAB PO SCH (08:48)
[2018-10-09] MEDS: THIAMINE HCL 100 MG TAB PO SCH (08:49)
--- NOTE | 2018-10-09 13:19 | Hospitalist Progress Note ---
Date of Service October 09, 2018 Assessment & Plan (1) Abscess of sigmoid colon due to diverticulitis: - CT with severe sigmoid diverticulitis with evidence of microperforation and small peridiverticular abscesses with largest measuring 28 mm - ID following, currently on Zosyn IV. May require PICC line and IV abx at home -- pt. has expressed concerns regarding home IV abx management. - Pain control: Tylenol and Dilaudid prn. - Advance to full liquid diet for lunch; no IVFs indicated. - Gen Surg consulted, appreciate input. Will need CT later this week. (2) Alcohol abuse: - Reports drinking a couple drafts at the club nightly and usually takes 2 quarts home each night; denies h/o ETOH withdrawal. - AWSS protocol; received banana bag on 10/05/18. - Folic acid 1 mg daily and Thiamine 100 mg daily in AM; Folate and B1 level ordered in the morning. - Completed Gabapentin taper given heavy ETOH use. 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 (3) Tremor: - ETOH induced vs essential. - Not currently receiving medication for symptoms. (4) Smoking: - Nicotine patch ordered prn. (5) Hypokalemia: - K level 3.4 -- ordered KCl 20 mEq PO. (6) DVT prophylaxis: - Will start Lovenox ppx as pt. will likely not require surgical intervention during this admission. Dispo: Surgery following. Supervising Physician Co-Signing Physician Notes PA Supervision Note: I did not personally see or examine the patient today, but I verified all sandoval points of KATHARINA Maxwell's assessment and plan with the following exceptions/additions: None Subjective Pt. is doing well overall. Is tolerating CLD, will be advanced to full liquid diet for lunch. Has ongoing diarrhea, no melena or hematochezia noted. Denies nausea/vomiting. Surgery following, appreciate input. 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 Will need to discuss with Dr. Reyes and Dr. Rizo. Review of Systems All systems reviewed & are unremarkable except as noted in HPI & below Constitutional: no fever, no chills, no fatigue, no weakness and no anorexia Respiratory: no cough, no dyspnea and no dyspnea on exertion Cardiovascular: no chest pain, no palpitations and no edema Gastrointestinal: + diarrhea/loose stools; no abdominal pain, no nausea, no vomiting, no constipation, no blood in stools and no melena Genitourinary (Male): no difficulty urinating Musculoskeletal: no joint pain Allergy / Immunological: no rash Physical Exam Vital Signs (Past 24 Hours): Last Vital Signs Temp 36.7 C 10/09/18 07:52 Pulse 69 10/09/18 07:52 Resp 16 10/09/18 07:52 BP 111/71 10/09/18 07:52 Pulse Ox 95 10/09/18 07:52 Physical Exam: General: Resting comfortably in no apparent distress HEENT: NC/AT; PERRLA with EOMI; [place] conjunctiva, MMM. Neck: Supple and nontender Cardiac: RRR Lungs: CTA bilaterally Abdomen: Bowel normoactive X 4; Nontender to palpation Extremities: Warm. No edema present. Chronic bilat UE tremor present, unchanged over last 24 hours. Neuro: No focal weakness Skin: No rash Results & Data Laboratory Results 10/09/18 Range/Units 06:20 Sodium 141 (136-145) mmol/L Potassium 3.4 L (3.5-5.1) mmol/L Chloride 105 (98-107) mmol/L Carbon Dioxide 29 (21-32) mmol/L Anion Gap 7.0 (3-11) BUN 3 L (7-18) mg/dl Creatinine 0.63 (0.6-1.4) mg/dl Est Cr Clr Drug Dosing 113.9 ml/min Est GFR ( Amer) 125.0 Est GFR (Non-Af Amer) 107.9 BUN/Creatinine Ratio 5.4 L (10-20) Glucose 85 (70-99) mg/dl Calcium 8.1 L (8.5-10.1) mg/dl Magnesium 2.2 (1.8-2.4) mg/dl Total Bilirubin 0.2 (0.2-1) mg/dl AST 13 L (15-37) U/L ALT 28 (12-78) U/L Alkaline Phosphatase 63 (45-117) U/L Total Protein 6.2 L (6.4-8.2) gm/dl Albumin 2.2 L (3.4-5.0) gm/dl Globulin 4.0 (2.5-4.0) gm/dl Albumin/Globulin Ratio 0.6 L (0.9-2)
[2018-10-10] MEDS: PIPERACILLIN/TAZOBACTAM 3.375 GM in DEXTROSE 5% 100 ML IV SCH ×3 (05:33→21:09)
--- NOTE | 2018-10-10 06:41 | Progress Note ---
Date of Service October 10, 2018 Assessment & Plan (1) Abscess of sigmoid colon due to diverticulitis: doesn't seem IV atbx at home are going to work check CT tomorrow- Cont IV atbx for now some concern for sending him home on po atbx too soon adv to low fiber diet Subjective afeb- padmini full liquids Physical Exam Vital Signs (Past 24 Hours): Last Vital Signs Temp 36.6 C 10/09/18 22:50 Pulse 61 10/09/18 22:50 Resp 16 10/09/18 22:50 BP 109/73 10/09/18 22:50 Pulse Ox 98 10/09/18 22:50 abd- soft
[2018-10-10 07:03] LABS: INR 1.1 (0.9-1.1); Partial Thromboplastin Ratio 0.9; Partial Thromboplastin Time 25.4 Seconds (21.0-31.0); Prothrombin Time 11.5 Seconds (9.0-12.0)
[2018-10-10 07:29] LABS: BUN Creatinine Ratio 2.9 (10-20); Calcium 8.3 mg/dl (8.5-10.1); Creatinine Clr Calc Pharmacy 98.3 ml/min; Est GFR (African American) 117.7; Est GFR (Non-African American) 101.5; Magnesium 2.3 mg/dl (1.8-2.4)
[2018-10-10] MEDS: FOLIC ACID 1 MG TAB PO SCH (08:30)
[2018-10-10] MEDS: THIAMINE HCL 100 MG TAB PO SCH (08:30)
[2018-10-10] MEDS: ENOXAPARIN INJ 40 MG/0.4 ML SYR SQ SCH (08:31)
--- NOTE | 2018-10-11 00:24 | Hospitalist Progress Note ---
Date of Service October 10, 2018 Assessment & Plan (1) Abscess of sigmoid colon due to diverticulitis: - CT with severe sigmoid diverticulitis with evidence of microperforation and small peridiverticular abscesses with largest measuring 28 mm - ID following, currently on Zosyn IV. Surgery was recommending PICC line and IV abx at home -- pt. has expressed concerns regarding home IV abx management given his job (doesn't think he would be allowed to work with a PICC line in place) and his hand tremor, lives alone. -continue IV abx for now and will await repeat CT abd/pel inthe AM to see if abscess size improving - Pain control: Tylenol and Dilaudid prn. - continue reg diet - Gen Surg consulted, appreciate input. (2) Alcohol abuse: - Reports drinking a couple drafts at the club nightly and usually takes 2 quarts home each night; denies h/o ETOH withdrawal. - AWSS protocol; received banana bag on 10/05/18. No evidence of withdrawal here Not motivated to quit drinking EtOH - continue Folic acid 1 mg daily and Thiamine 100 mg daily in AM; Folate level is normal, and B1 level pending, check B12 in AM - Completed Gabapentin taper given heavy ETOH use. 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 (3) Tremor: - ETOH induced vs essential. - Not currently receiving medication for symptoms. -checking B vitamins (4) Smoking: - Nicotine patch ordered prn. -counseled on smoking cessation (5) Hypokalemia: replaced and now resolved (6) DVT prophylaxis: continue Lovenox SQ Dispo: remain hospitalized at least 2 more days to see how abscess is on CT scan Subjective Pt only has very mild pain in LLQ, padmini regular diet and feeling well. Afebrile, no nausea. Is passing some loose BMs, nonbloody. No nausea. No CP or SOB Review of Systems All systems reviewed & are unremarkable except as noted in HPI & below Physical Exam Vital Signs (Past 24 Hours): Last Vital Signs Temp 36.6 C 10/10/18 23:02 Pulse 76 10/10/18 23:02 Resp 16 10/10/18 23:02 BP 136/87 10/10/18 23:02 Pulse Ox 95 10/10/18 23:02 Constitutional: WD/WN, vitals as above Eyes: PERRL, conjunctivae normal, anicteric sclerae ENMT: external ear and nose normal, oropharynx normal Neck: trachea midline, no thyromegaly Respiratory: normal respiratory effort, lungs clear to auscultation Cardiovascular: RRR, no murmur, no edema Gastrointestinal (Abdomen): Inspection/Auscultation: abdomen normal to inspection and normal bowel sounds; abdomen not distended Percussion/Palpation: + abdomen tender (in LLQ without guarding or rebound tenderness) Musculoskeletal: Extremities: extremities normal to inspection; no cyanosis and no clubbing Skin: no rashes, warm and dry Neurologic: moves all extremities and awake; no focal motor deficits Psychiatric: A+Ox3, euthymic affect Results & Data Laboratory Results 10/10/18 10/10/18 10/10/18 Range/Units 06:23 06:23 06:23 PT 11.5 (9.0-12.0) Seconds INR 1.1 (0.9-1.1) APTT 25.4 (21.0-31.0) Seconds PTT Ratio 0.9 Sodium (136-145) mmol/L Potassium (3.5-5.1) mmol/L Chloride (98-107) mmol/L Carbon Dioxide (21-32) mmol/L Anion Gap (3-11) BUN (7-18) mg/dl Creatinine (0.6-1.4) mg/dl Est Cr Clr Drug Dosing ml/min Est GFR ( Amer) Est GFR (Non-Af Amer) BUN/Creatinine Ratio (10-20) Glucose (70-99) mg/dl Calcium (8.5-10.1) mg/dl Magnesium (1.8-2.4) mg/dl Vitamin B1 Pending Folate 14.07 (>5.38) ng/ml 10/10/18 Range/Units 06:23 PT (9.0-12.0) Seconds INR (0.9-1.1) APTT (21.0-31.0) Seconds PTT Ratio Sodium 139 (136-145) mmol/L Potassium 4.0 D (3.5-5.1) mmol/L Chloride 105 (98-107) mmol/L Carbon Dioxide 30 (21-32) mmol/L Anion Gap 4.0 (3-11) BUN 2 L (7-18) mg/dl Creatinine 0.73 (0.6-1.4) mg/dl Est Cr Clr Drug Dosing 98.3 ml/min Est GFR ( Amer) 117.7 Est GFR (Non-Af Amer) 101.5 BUN/Creatinine Ratio 2.9 L (10-20) Glucose 85 (70-99) mg/dl Calcium 8.3 L (8.5-10.1) mg/dl Magnesium 2.3 (1.8-2.4) mg/dl Vitamin B1 Folate (>5.38) ng/ml
[2018-10-11] MEDS: PIPERACILLIN/TAZOBACTAM 3.375 GM in DEXTROSE 5% 100 ML IV SCH ×3 (05:11→21:05)
--- NOTE | 2018-10-11 06:07 | Progress Note ---
Date of Service October 11, 2018 Assessment & Plan (1) Abscess of sigmoid colon due to diverticulitis: day 6 of IV atbx- pt has been doing very well for CT today- cont Atbx- may consider in hospital care over weekend then chg to po atbx at least 2 weeks totoal, possibly 3 weeks will need colonoscopy 4-6 weeks Physical Exam Vital Signs (Past 24 Hours): Last Vital Signs Temp 36.6 C 10/10/18 23:02 Pulse 76 10/10/18 23:02 Resp 16 10/10/18 23:02 BP 136/87 10/10/18 23:02 Pulse Ox 95 10/10/18 23:02
[2018-10-11 06:19] LABS: Basophils # (auto) 0.06 K/uL (0-0.2); Basophils % (auto) 0.8 %; Eosinophils % (auto) 3.8 %; Hemoglobin 13.2 g/dL (14.0-18.0); Immature Granulocytes # (auto) 0.06 K/uL (0.00-0.02); Immature Granulocytes % (auto) 0.8 %; Lymphocytes # (auto) 1.68 K/uL (1.2-3.4); Lymphocytes % (auto) 21.3 %; Mean Corpuscular Volume 92.4 fL (80-100); Mean Platelet Volume 8.7 fL (7.4-10.4); Monocytes # (auto) 0.65 K/uL (0.11-0.59); Monocytes % (auto) 8.2 %; Neutrophils # (auto) 5.14 K/uL (1.4-6.5); Neutrophils % (auto) 65.1 %; Platelet Count 415 K/uL (130-400); RDW Coefficient of Variation 14.6 % (11.5-14.5); RDW Standard Deviation 49.6 fL (36.4-46.3); Red Blood Count 4.33 M/uL (4.7-6.1); White Blood Count 7.89 K/uL (4.8-10.8)
[2018-10-11 06:54] LABS: BUN Creatinine Ratio 7.2 (10-20); Calcium 8.5 mg/dl (8.5-10.1); Creatinine Clr Calc Pharmacy 88.6 ml/min; Est GFR (African American) 112.7; Est GFR (Non-African American) 97.3; Potassium 4.3 mmol/L (3.5-5.1)
[2018-10-11] MEDS ORDERED: IOVERSOL 100ml IV PRN (08:20)
--- NOTE | 2018-10-11 08:34 | CT Scan Report ---
CT abd pelvis oral and IV con CLINICAL HISTORY: 58 years-old Male presenting with wound drainage, left lower quadrant pain. TECHNIQUE: Multidetector CT of the abdomen and pelvis was performed after the administration of oral and intravenous contrast. IV contrast: 95 mL of Optiray 320. One or more dose lowering techniques wer e used consistent with the principles of ALARA (as low as reasonably achievable), including automatic exposure control, mA or kV adjustment to individual patient size, and/or use of iterative reconstruc tion. COMPARISON: 10/05/2018. CT DOSE (mGy.cm): The estimated cumulative dose is 347.79 mGy.cm. FINDINGS: Direct Care Specialist topogram: Cholecystectomy clips. Lung bases: Normal heart size. No pericardial or pleural effusion. Minimal dependent changes likely a telectasis. Fat-containing right Bochdalek hernia. Liver: Normal morphology. Subcentimeter well-defined hypodense lesion in the medial liver likely hepa tic cyst or hamartoma. Patent hepatic vasculature. Biliary: No intrahepatic or extrahepatic biliary ductal dilatation. Gallbladder surgically absent. Pancreas: Normal. Spleen: Few punctate calcifications may suggest a history of granulomatous disease. Adrenal glands: Normal. Kidneys and ureters: Few well-defined hypodensities in the kidneys the largest on the left, likely si mple cysts. No nephrolithiasis or hydronephrosis. Ureters nondistended. Bladder: Circumferential bladder wall thickening. Pelvic organs: Prostate and seminal vesicles normal. Bowel: Significant wall thickening and pericolonic inflammatory change along the distal sigmoid colon , which has slightly decreased since the prior exam. The previously noted adjacent intraperitoneal fl uid collections demonstrate resolution of the air-fluid components. Granulation tissue remains consis tent with scarring. No measurable fluid collection. Diverticulosis of the proximal to mid sigmoid col on as well as the descending colon without associated wall thickening or inflammatory change. No dru l obstruction. The appendix is not opacified with contrast in the mid to distal portion, which approa ches the inflammation within the pelvis. The appendiceal tip measures 7 mm in diameter (series 3 imag e 241). This may be secondarily and mildly inflamed. Peritoneal cavity: No free intraperitoneal fluid though there is extensive peritoneal thickening and granulation tissue in the pelvis primarily in the superior pelvis. Foci of gas along the distal sigmo id colon are felt to be contained within diverticula. No convincing evidence of extraluminal or free intraperitoneal gas. Lymph nodes: Few prominent bilateral inguinal and external iliac lymph nodes likely reactive and aissatou lar prior. Vasculature: Atherosclerosis of the normal caliber abdominal aorta. IVC patent. Abdominal wall: Few foci of gas in the right anterior abdominal wall related to medication administra tion. Musculoskeletal: Degenerative changes of the sacroiliac joints and spine. IMPRESSION: 1. Slight interval decrease in inflammatory change associated with the severe complicated diverticul itis of the distal sigmoid colon. Resolution of the fluid components of previously evident peridivert icular abscesses. Extensive granulation tissue/scarring remains with associated peritoneal inflammati on. No extraluminal or free gas. 2. Circumferential bladder wall thickening likely reactive to adjacent inflammation. 3. Mildly dilated appendiceal tip, which approaches the pelvic inflammation and is likely secondaril y and mildly inflamed. Electronically signed by: Alejandro Soni M.D. 10/11/2018 8:31 AM
[2018-10-11] MEDS: ENOXAPARIN INJ 40 MG/0.4 ML SYR SQ SCH (09:34)
[2018-10-11] MEDS: THIAMINE HCL 100 MG TAB PO SCH (09:34)
[2018-10-11] MEDS: FOLIC ACID 1 MG TAB PO SCH (09:34)
--- NOTE | 2018-10-11 12:40 | Hospitalist Progress Note ---
Date of Service October 11, 2018 Assessment & Plan (1) Abscess of sigmoid colon due to diverticulitis: - CT with severe sigmoid diverticulitis with evidence of microperforation and small peridiverticular abscesses with largest measuring 28 mm - ID following, currently on Zosyn IV. Surgery was recommending PICC line and IV abx at home -- pt. has expressed concerns regarding home IV abx management given his job (doesn't think he would be allowed to work with a PICC line in place) and his hand tremor, lives alone. Repeat CT abd/pel 10/11 with some improvement but still with significant inflammation -continue IV abx through this weekend and then convert to po Augmentin likely on Monday for discharge--> plan for 3 weeks total abx as per SUrgery -needs colonoscopy in 4-6 weeks (also noted that his Mom had colon CA in her 80s) - Pain control: Tylenol and Dilaudid prn. - continue low fiber diet - Gen Surg consulted, appreciate input. (2) Alcohol abuse: - Reports drinking a couple drafts at the club nightly and usually takes 2 quarts home each night; denies h/o ETOH withdrawal. - AWSS protocol; received banana bag on 10/05/18. No evidence of withdrawal here Not motivated to quit drinking EtOH - continue Folic acid 1 mg daily and Thiamine 100 mg daily in AM; Folate and B12 levels normal, and B1 level pending - Completed Gabapentin taper given heavy ETOH use. 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 (3) Tremor: - ETOH induced vs essential. - Not currently receiving medication for symptoms. -checking B1 (4) Smoking: - Nicotine patch ordered prn. -counseled on smoking cessation (5) Hypokalemia: replaced and now resolved (6) DVT prophylaxis: continue Lovenox SQ Dispo: remain hospitalized through the weekend for continued IV abx Subjective Pt feeling well, only min LLQ pain. No N/V, is moving bowels, making urine, padmini po. No CP or SOB. He is ambulating the halls Discussed case with Dr. Reyes Review of Systems All systems reviewed & are unremarkable except as noted in HPI & below Physical Exam Vital Signs (Past 24 Hours): Last Vital Signs Temp 36.4 C L 10/11/18 08:45 Pulse 76 10/11/18 08:45 Resp 16 10/11/18 08:45 BP 122/82 10/11/18 08:45 Pulse Ox 99 10/11/18 08:45 Constitutional: WD/WN, vitals as above Eyes: PERRL, conjunctivae normal, anicteric sclerae ENMT: external ear and nose normal, oropharynx normal Neck: trachea midline, no thyromegaly Respiratory: normal respiratory effort, lungs clear to auscultation Cardiovascular: RRR, no murmur, no edema Gastrointestinal (Abdomen): Inspection/Auscultation: abdomen normal to inspection and normal bowel sounds; abdomen not distended Percussion/Palpation: + abdomen tender (in LLQ without guarding or rebound tenderness) Musculoskeletal: Extremities: extremities normal to inspection; no cyanosis and no clubbing Skin: no rashes, warm and dry Neurologic: moves all extremities and awake; no focal motor deficits Psychiatric: A+Ox3, euthymic affect Results & Data Laboratory Results 10/11/18 10/11/18 10/11/18 Range/Units 05:33 05:33 05:33 WBC 7.89 (4.8-10.8) K/uL RBC 4.33 L (4.7-6.1) M/uL Hgb 13.2 L (14.0-18.0) g/dL Hct 40.0 L (42-52) % MCV 92.4 (80-100) fL MCH 30.5 (25-34) pg MCHC 33.0 (32-36) g/dL RDW Std Deviation 49.6 H (36.4-46.3) fL RDW Coeff of Bret 14.6 H (11.5-14.5) % Plt Count 415 H (130-400) K/uL MPV 8.7 (7.4-10.4) fL Immature Gran % (Auto) 0.8 % Neut % (Auto) 65.1 % Lymph % (Auto) 21.3 % [place] % (Auto) 8.2 % Eos % (Auto) 3.8 % Baso % (Auto) 0.8 % Immature Gran # (Auto) 0.06 H (0.00-0.02) K/uL Neut # (Auto) 5.14 (1.4-6.5) K/uL Lymph # (Auto) 1.68 (1.2-3.4) K/uL [place] # (Auto) 0.65 H (0.11-0.59) K/uL Eos # (Auto) 0.30 (0-0.5) K/uL Baso # (Auto) 0.06 (0-0.2) K/uL Sodium 140 (136-145) mmol/L Potassium 4.3 (3.5-5.1) mmol/L Chloride 105 (98-107) mmol/L Carbon Dioxide 30 (21-32) mmol/L Anion Gap 5.0 (3-11) BUN 6 L (7-18) mg/dl Creatinine 0.81 (0.6-1.4) mg/dl Est Cr Clr Drug Dosing 88.6 ml/min Est GFR ( Amer) 112.7 Est GFR (Non-Af Amer) 97.3 BUN/Creatinine Ratio 7.2 L (10-20) Glucose 82 (70-99) mg/dl Calcium 8.5 (8.5-10.1) mg/dl Vitamin B12 819 (211-911) pg/ml Diagnostic Findings CT abd pelvis oral and IV con CLINICAL HISTORY: 58 years-old Male presenting with wound drainage, left lower quadrant pain. TECHNIQUE: Multidetector CT of the abdomen and pelvis was performed after the administration of oral and intravenous contrast. IV contrast: 95 mL of Optiray 320. One or more dose lowering techniques were used consistent with the principles of ALARA (as low as reasonably achievable), including automatic exposure control, mA or kV adjustment to individual patient size, and/or use of iterative reconstruction. COMPARISON: 10/05/2018. CT DOSE (mGy.cm): The estimated cumulative dose is 347.79 mGy.cm. FINDINGS: It Generalist topogram: Cholecystectomy clips. Lung bases: Normal heart size. No pericardial or pleural effusion. Minimal dependent changes likely atelectasis. Fat-containing right Bochdalek hernia. Liver: Normal morphology. Subcentimeter well-defined hypodense lesion in the medial liver likely hepatic cyst or hamartoma. Patent hepatic vasculature. Biliary: No intrahepatic or extrahepatic biliary ductal dilatation. Gallbladder surgically absent. Pancreas: Normal. Spleen: Few punctate calcifications may suggest a history of granulomatous disease. Adrenal glands: Normal. Kidneys and ureters: Few well-defined hypodensities in the kidneys the largest on the left, likely simple cysts. No nephrolithiasis or hydronephrosis. Ureters nondistended. Bladder: Circumferential bladder wall thickening. Pelvic organs: Prostate and seminal vesicles normal. Bowel: Significant wall thickening and pericolonic inflammatory change along the distal sigmoid colon, which has slightly decreased since the prior exam. The previously noted adjacent intraperitoneal fluid collections demonstrate resolution of the air-fluid components. Granulation tissue remains consistent with scarring. No measurable fluid collection. Diverticulosis of the proximal to mid sigmoid colon as well as the descending colon without associated wall thickening or inflammatory change. No bowel obstruction. The appendix is not opacified with contrast in the mid to distal portion, which approaches the inflammation within the pelvis. The appendiceal tip measures 7 mm in diameter (series 3 image 241). This may be secondarily and mildly inflamed. Peritoneal cavity: No free intraperitoneal fluid though there is extensive peritoneal thickening and granulation tissue in the pelvis primarily in the superior pelvis. Foci of gas along the distal sigmoid colon are felt to be con tained within diverticula. No convincing evidence of extraluminal or free intraperitoneal gas. Lymph nodes: Few prominent bilateral inguinal and external iliac lymph nodes likely reactive and similar prior. Vasculature: Atherosclerosis of the normal caliber abdominal aorta. IVC patent. Abdominal wall: Few foci of gas in the right anterior abdominal wall related to medication administration. Musculoskeletal: Degenerative changes of the sacroiliac joints and spine. IMPRESSION: 1. Slight interval decrease in inflammatory change associated with the severe complicated diverticulitis of the distal sigmoid colon. Resolution of the fluid components of previously evident peridiverticular abscesses. Extensive granulation tissue/scarring remains with associated peritoneal inflammation. No extraluminal or free gas. 2. Circumferential bladder wall thickening likely reactive to adjacent inflammation. 3. Mildly dilated appendiceal tip, which approaches the pelvic inflammation and is likely secondarily and mildly inflamed.
[2018-10-12] MEDS: PIPERACILLIN/TAZOBACTAM 3.375 GM in DEXTROSE 5% 100 ML IV SCH ×3 (05:25→21:30)
[2018-10-12 07:17] LABS: Creatinine Clr Calc Pharmacy 88.6 ml/min; Est GFR (African American) 112.7; Est GFR (Non-African American) 97.3
[2018-10-12] MEDS: THIAMINE HCL 100 MG TAB PO SCH (07:23)
[2018-10-12] MEDS: ENOXAPARIN INJ 40 MG/0.4 ML SYR SQ SCH (07:23)
[2018-10-12] MEDS: FOLIC ACID 1 MG TAB PO SCH (07:23)
--- NOTE | 2018-10-12 12:01 | Progress Note ---
Date of Service October 12, 2018 Assessment & Plan (1) Abscess of sigmoid colon due to diverticulitis: CT shows improvement but signif inflammation favor IV atbx at least through weekend [facility] surgery covering over weekend Subjective vitals stable no distress- no pain Physical Exam Vital Signs (Past 24 Hours): Last Vital Signs Temp 36.8 C 10/12/18 07:35 Pulse 58 L 10/12/18 07:35 Resp 18 10/12/18 07:35 BP 110/74 10/12/18 07:35 Pulse Ox 97 10/12/18 07:35 no acute changes
--- NOTE | 2018-10-12 17:50 | Hospitalist Progress Note ---
Date of Service October 12, 2018 Assessment & Plan (1) Abscess of sigmoid colon due to diverticulitis: - CT with severe sigmoid diverticulitis with evidence of microperforation and small peridiverticular abscesses with largest measuring 28 mm - ID following, continues on Zosyn IV. Surgery was recommending PICC line and IV abx at home -- pt. has expressed concerns regarding home IV abx management given his job (doesn't think he would be allowed to work with a PICC line in place) and his hand tremor, lives alone. Repeat CT abd/pel 10/11 with some improvement but still with significant inflammation Clinically much improved-has very minimal abdominal pain is tolerating a low fiber diet -continue IV abx through this weekend and then convert to po Augmentin likely on Monday for discharge--> plan for 3 weeks total abx as per SUrgery -needs colonoscopy in 4-6 weeks (also noted that his Mom had colon CA in her 80s) - Pain control: Tylenol prn. - continue low fiber diet - Gen Surg consulted, appreciate input. (2) Alcohol abuse: - Reports drinking a couple drafts at the club nightly and usually takes 2 quarts home each night; denies h/o ETOH withdrawal. - AWSS protocol; received banana bag on 10/05/18. No evidence of withdrawal here Not motivated to quit drinking EtOH - continue Folic acid 1 mg daily and Thiamine 100 mg daily in AM; Folate and B12 levels normal, and B1 level pending - Completed Gabapentin taper given heavy ETOH use. -Encourage cessation (3) Tremor: - ETOH induced vs essential. - Not currently receiving medication for symptoms. -checking B1 (4) Smoking: - Nicotine patch ordered prn. -counseled on smoking cessation (5) Hypokalemia: replaced and now resolved -Follow BMP in the morning (6) DVT prophylaxis: continue Lovenox SQ Dispo: remain hospitalized through the weekend for continued IV abx Subjective Patient feeling very well, minimal pain left lower quadrant. He is tolerating p.o. without nausea or vomiting. He had a bowel movement today without any blood. He is ambulating the halls. Denies chest pain shortness of breath. Review of Systems All systems reviewed & are unremarkable except as noted in HPI & below Physical Exam Vital Signs (Past 24 Hours): Last Vital Signs Temp 36.8 C 03/08/19 15:06 Pulse 66 10/12/18 15:06 Resp 16 10/12/18 15:06 BP 108/71 10/12/18 15:06 Pulse Ox 95 10/12/18 15:06 Constitutional: WD/WN, vitals as above Eyes: PERRL, conjunctivae normal, anicteric sclerae ENMT: external ear and nose normal, oropharynx normal Neck: trachea midline, no thyromegaly Respiratory: normal respiratory effort, lungs clear to auscultation Cardiovascular: RRR, no murmur, no edema Gastrointestinal (Abdomen): Inspection/Auscultation: abdomen normal to inspection and normal bowel sounds; abdomen not distended Percussion/Palpation: + abdomen tender (Very minimal in LLQ without guarding or rebound tenderness) Musculoskeletal: Extremities: extremities normal to inspection; no cyanosis and no clubbing Skin: no rashes, warm and dry Neurologic: moves all extremities and awake; no focal motor deficits Motor/Sensory: + tremor (Coarse tremor in the hands and at times in the jaw when the mouth is open) Psychiatric: A+Ox3, euthymic affect Results & Data Laboratory Results 10/12/18 Range/Units 05:50 Creatinine 0.81 (0.6-1.4) mg/dl Est Cr Clr Drug Dosing 88.6 ml/min Est GFR ( Amer) 112.7 Est GFR (Non-Af Amer) 97.3
[2018-10-13] MEDS: PIPERACILLIN/TAZOBACTAM 3.375 GM in DEXTROSE 5% 100 ML IV SCH ×3 (05:19→20:52)
[2018-10-13 06:50] LABS: Basophils # (auto) 0.08 K/uL (0-0.2); Eosinophils # (auto) 0.25 K/uL (0-0.5); Eosinophils % (auto) 3.1 %; Hematocrit (blood only) 41.4 % (42-52); Hemoglobin 13.3 g/dL (14.0-18.0); Immature Granulocytes # (auto) 0.05 K/uL (0.00-0.02); Immature Granulocytes % (auto) 0.6 %; Lymphocytes % (auto) 22.5 %; Mean Corpuscular Hgb Conc 32.1 g/dL (32-36); Mean Corpuscular Volume 93.7 fL (80-100); Mean Platelet Volume 9.4 fL (7.4-10.4); Monocytes # (auto) 0.67 K/uL (0.11-0.59); Monocytes % (auto) 8.4 %; Neutrophils # (auto) 5.14 K/uL (1.4-6.5); Neutrophils % (auto) 64.4 %; Platelet Count 392 K/uL (130-400); RDW Coefficient of Variation 15.2 % (11.5-14.5); RDW Standard Deviation 51.8 fL (36.4-46.3); Red Blood Count 4.42 M/uL (4.7-6.1); White Blood Count 7.99 K/uL (4.8-10.8)
[2018-10-13 07:00] LABS: BUN Creatinine Ratio 11.3 (10-20); Calcium 8.6 mg/dl (8.5-10.1); Creatinine Clr Calc Pharmacy 87.5 ml/min; Est GFR (African American) 112.2; Est GFR (Non-African American) 96.8; Magnesium 2.8 mg/dl (1.8-2.4); Potassium 4.4 mmol/L (3.5-5.1)
[2018-10-13] MEDS: FOLIC ACID 1 MG TAB PO SCH (08:12)
[2018-10-13] MEDS: THIAMINE HCL 100 MG TAB PO SCH (08:12)
[2018-10-13] MEDS: ENOXAPARIN INJ 40 MG/0.4 ML SYR SQ SCH (08:12)
--- NOTE | 2018-10-13 12:48 | Surgery Progress Note ---
Date of Service October 13, 2018 doing fine, no abdominal pain, he tolerated diet, Assessment & Plan (1) Abscess of sigmoid colon due to diverticulitis: doing fine, continue treatment, will F/U Physical Exam Vital Signs (Past 24 Hours): Last Vital Signs Temp 36.8 C 10/13/18 07:40 Pulse 64 10/13/18 07:40 Resp 19 10/13/18 07:40 BP 94/60 L 10/13/18 07:40 Pulse Ox 95 10/13/18 07:40 Constitutional: WD/WN, vitals as above Neck: trachea midline, no thyromegaly Respiratory: normal respiratory effort, lungs clear to auscultation Cardiovascular: RRR, no murmur, no edema Gastrointestinal (Abdomen): Percussion/Palpation: abdomen soft NT, ND Neurologic: awake Psychiatric: Orientation: alert and oriented x 3 Results & Data Laboratory Results Abnormal lab results 10/13/18 10/13/18 Range/Units 06:02 06:02 RBC 4.42 L (4.7-6.1) M/uL Hgb 13.3 L (14.0-18.0) g/dL Hct 41.4 L (42-52) % RDW Std Deviation 51.8 H (36.4-46.3) fL RDW Coeff of Bret 15.2 H (11.5-14.5) % Immature Gran # (Auto) 0.05 H (0.00-0.02) K/uL [place] # (Auto) 0.67 H (0.11-0.59) K/uL Magnesium 2.8 H (1.8-2.4) mg/dl
--- NOTE | 2018-10-13 16:59 | Hospitalist Progress Note ---
Date of Service October 13, 2018 Assessment & Plan (1) Abscess of sigmoid colon due to diverticulitis: - CT with severe sigmoid diverticulitis with evidence of microperforation and small peridiverticular abscesses with largest measuring 28 mm - ID following, continues on Zosyn IV. Surgery was recommending PICC line and IV abx at home -- pt. has expressed concerns regarding home IV abx management given his job (doesn't think he would be allowed to work with a PICC line in place) and his hand tremor, lives alone. Repeat CT abd/pel 10/11 with some improvement but still with significant inflammation Clinically much improved-now with no abdominal pain is tolerating a low fiber diet, remains afebrile, no leukocytosis, abdominal exam is benign Stool culture negative, C. difficile stool toxin negative, ova and parasites negative Blood cultures negative -continue IV abx through this weekend and then convert to po Augmentin likely on Monday for discharge--> plan for 3 weeks total abx as per SUrgery -needs colonoscopy in 4-6 weeks (also noted that his Mom had colon CA in her 80s) - Pain control: Tylenol prn. - continue low fiber diet - Gen Surg consulted, appreciate input. (2) Alcohol abuse: - Reports drinking a couple drafts at the club nightly and usually takes 2 quarts home each night; denies h/o ETOH withdrawal. - [facility] [place] protocol; received banana bag on 10/05/18. No evidence of withdrawal here Not motivated to quit drinking EtOH - continue Folic acid 1 mg daily and Thiamine 100 mg daily in AM; Folate and B12 levels normal, and B1 level pending - Completed Gabapentin taper given heavy ETOH use. -Encourage cessation (3) Tremor: - ETOH induced vs essential tremor - Not currently receiving medication for symptoms. -checking B1 (4) Smoking: - Nicotine patch ordered prn. -counseled on smoking cessation (5) Hypokalemia: replaced and now resolved -Follow BMP in the morning (6) DVT prophylaxis: continue Lovenox SQ Dispo: remain hospitalized through the weekend for continued IV abx and likely discharged home on Monday on oral antibiotics Subjective Feeling great, denies any abdominal pain. He had a formed bowel movement today that was nonbloody. He is tolerating p.o. Denies nausea or vomiting. He has been ambulating the halls frequently. Denies shortness of breath or chest pain. He has been afebrile. Review of Systems All systems reviewed & are unremarkable except as noted in HPI & below Physical Exam Vital Signs (Past 24 Hours): Last Vital Signs Temp 36.9 C 10/13/18 15:30 Pulse 69 10/13/18 15:30 Resp 18 10/13/18 15:30 BP 101/67 10/13/18 15:30 Pulse Ox 96 10/13/18 15:30 Constitutional: WD/WN, vitals as above Eyes: PERRL, conjunctivae normal, anicteric sclerae ENMT: external ear and nose normal, oropharynx normal Neck: trachea midline, no thyromegaly Respiratory: normal respiratory effort, lungs clear to auscultation Cardiovascular: RRR, no murmur, no edema Gastrointestinal (Abdomen): Inspection/Auscultation: abdomen normal to inspection and normal bowel sounds; abdomen not distended Percussion/Palpation: abdomen soft; abdomen nontender Musculoskeletal: Extremities: extremities normal to inspection; no cyanosis and no clubbing Skin: no rashes, warm and dry Neurologic: moves all extremities and awake; no focal motor deficits Motor/Sensory: + tremor (Coarse tremor in the hands and at times in the jaw when the mouth is open) Psychiatric: A+Ox3, euthymic affect Results & Data Laboratory Results 10/13/18 10/13/18 Range/Units 06:02 06:02 WBC 7.99 (4.8-10.8) K/uL RBC 4.42 L (4.7-6.1) M/uL Hgb 13.3 L (14.0-18.0) g/dL Hct 41.4 L (42-52) % MCV 93.7 (80-100) fL MCH 30.1 (25-34) pg MCHC 32.1 (32-36) g/dL RDW Std Deviation 51.8 H (36.4-46.3) fL RDW Coeff of Bret 15.2 H (11.5-14.5) % Plt Count 392 (130-400) K/uL MPV 9.4 (7.4-10.4) fL Immature Gran % (Auto) 0.6 % Neut % (Auto) 64.4 % Lymph % (Auto) 22.5 % [place] % (Auto) 8.4 % Eos % (Auto) 3.1 % Baso % (Auto) 1.0 % Immature Gran # (Auto) 0.05 H (0.00-0.02) K/uL Neut # (Auto) 5.14 (1.4-6.5) K/uL Lymph # (Auto) 1.80 (1.2-3.4) K/uL [place] # (Auto) 0.67 H (0.11-0.59) K/uL Eos # (Auto) 0.25 (0-0.5) K/uL Baso # (Auto) 0.08 (0-0.2) K/uL Sodium 138 (136-145) mmol/L Potassium 4.4 (3.5-5.1) mmol/L Chloride 106 (98-107) mmol/L Carbon Dioxide 27 (21-32) mmol/L Anion Gap 5.0 (3-11) BUN 9 (7-18) mg/dl Creatinine 0.82 (0.6-1.4) mg/dl Est Cr Clr Drug Dosing 87.5 ml/min Est GFR ( Amer) 112.2 Est GFR (Non-Af Amer) 96.8 BUN/Creatinine Ratio 11.3 (10-20) Glucose 85 (70-99) mg/dl Calcium 8.6 (8.5-10.1) mg/dl Magnesium 2.8 H (1.8-2.4) mg/dl
[2018-10-14] MEDS: PIPERACILLIN/TAZOBACTAM 3.375 GM in DEXTROSE 5% 100 ML IV SCH ×3 (05:17→21:12)
[2018-10-14] MEDS: ENOXAPARIN INJ 40 MG/0.4 ML SYR SQ SCH (09:15)
[2018-10-14] MEDS: THIAMINE HCL 100 MG TAB PO SCH (09:15)
[2018-10-14] MEDS: FOLIC ACID 1 MG TAB PO SCH (09:15)
[2018-10-14] MEDS: LACTOBACILLUS ACIDOPHILUS (FLORANEX) TAB PO SCH ×2 (13:01→17:41)
--- NOTE | 2018-10-14 16:43 | Surgery Progress Note ---
Date of Service October 14, 2018 doing fine, no abdominal pain, no nausea, no vomiting Assessment & Plan (1) Abscess of sigmoid colon due to diverticulitis: doing fine, continue treatment, will F/U 10/14/2018 doing fine, continue treatment, will F/u Physical Exam Vital Signs (Past 24 Hours): Last Vital Signs Temp 36.6 C 10/14/18 15:05 Pulse 67 10/14/18 15:05 Resp 16 10/14/18 15:05 BP 102/67 10/14/18 15:05 Pulse Ox 97 10/14/18 15:05 Constitutional: WD/WN, vitals as above Neck: trachea midline, no thyromegaly Respiratory: normal respiratory effort, lungs clear to auscultation Cardiovascular: RRR, no murmur, no edema Gastrointestinal (Abdomen): Percussion/Palpation: abdomen soft Neurologic: awake Psychiatric: Orientation: alert and oriented x 3
--- NOTE | 2018-10-14 19:51 | Hospitalist Progress Note ---
Date of Service October 14, 2018 Assessment & Plan (1) Abscess of sigmoid colon due to diverticulitis: clinically improved. most recent CT abd/pelvis also improved. remains on IV zosyn. pt refusing PICC line -- states he is concerned his job at [employer] would not allow such. will speak with Dr. Reyes tomorrow about possibility of using PO abx at d/c. add lactinex. Present on Admission?: Yes (2) Smoking: nicoderm patch benefits counselor to quit (3) Alcohol abuse: no signs of withdrawal cont thiamine/folic acid/MVI benefits counselor to cut down or abstain (4) Tremor: probably familial/benign essential tremor (5) DVT prophylaxis: lovenox hopefully home tomorrow Subjective pt feeling well eating mashed potatoes during the visit scant LLQ pain but "nothing like it was" when he was first admitted stools have normalized; no diarrhea no nausea anxious to go home still refusing PICC line Constitutional: no fever and no chills Respiratory: no cough and no dyspnea Cardiovascular: no chest pain Physical Exam Vital Signs (Past 24 Hours): Last Vital Signs Temp 36.6 C 10/14/18 15:05 Pulse 67 10/14/18 15:05 Resp 16 10/14/18 15:05 BP 102/67 10/14/18 15:05 Pulse Ox 97 10/14/18 15:05 Constitutional: no acute distress, not ill appearing and no altered mental status ENMT: external ear and nose normal, oropharynx normal Respiratory: normal respiratory effort, lungs clear to auscultation Cardiovascular: Rate/Rhythm: regular rate and regular rhythm Heart Sounds: normal S1 and normal S2; no murmur Vessels: posterior tibial pulses present and dorsalis pedis pulses present; no JVD Gastrointestinal (Abdomen): normal bowel sounds, soft, nontender, no hepatosplenomegaly Neurologic: tremor - baseline Psychiatric: A+Ox3, euthymic affect Results & Data Laboratory Results Laboratory Results - last 24 hr 10/10/18 06:23 Vitamin B1 17
[2018-10-15] MEDS: PIPERACILLIN/TAZOBACTAM 3.375 GM in DEXTROSE 5% 100 ML IV SCH ×2 (05:42→12:27)
--- NOTE | 2018-10-15 06:10 | Progress Note ---
Date of Service October 15, 2018 Assessment & Plan (1) Abscess of sigmoid colon due to diverticulitis: I think he can be d/c home on Augmentin 875 bid for 2 weeks f/u in office 2-3 weeks- will re CT in future and discuss need for colonoscopy Subjective no acute chgs over 2-3 days afeb, vitals stable- taking no pain med Physical Exam Vital Signs (Past 24 Hours): Last Vital Signs Temp 36.9 C 10/14/18 22:46 Pulse 68 10/14/18 22:46 Resp 16 10/14/18 22:46 BP 110/74 10/14/18 22:46 Pulse Ox 96 10/14/18 22:46 no acute chgs
[2018-10-15 06:24] LABS: BUN Creatinine Ratio 13.9 (10-20); Calcium 8.5 mg/dl (8.5-10.1); Creatinine Clr Calc Pharmacy 88.6 ml/min; Est GFR (African American) 112.7; Est GFR (Non-African American) 97.3; Potassium 4.4 mmol/L (3.5-5.1)
[2018-10-15] MEDS: ENOXAPARIN INJ 40 MG/0.4 ML SYR SQ SCH (09:02)
[2018-10-15] MEDS: FOLIC ACID 1 MG TAB PO SCH (09:02)
[2018-10-15] MEDS: THIAMINE HCL 100 MG TAB PO SCH (09:02)
[2018-10-15] MEDS: LACTOBACILLUS ACIDOPHILUS (FLORANEX) TAB PO SCH ×2 (09:02→12:26)
--- NOTE | 2018-10-22 23:48 | Discharge Summary ---
Date of Service date of admission - October 05, 2018 date of discharge - October 15, 2018 Admission HPI Per Admitting Provider Mr. Kaur is a 58 y/o male with PMHx of benign essential tremor and ETOH Abuse who presents with LLQ abdominal pain. Pt reports he has had LLQ abdominal pain for approximately 3 weeks and reports associated diarrhea. States he has been able to eat normally and denies nausea/vomiting. Has had intermittent diarrhea but sometimes it is formed but soft. He denies melena/hematochezia. Last BM was early this AM. Due to ongoing symptoms his PCP ordered a CT scan. CT showed severe sigmoid diverticulitis with evidence of microperferation and small peridiverticular abscesses largest being 28 mm and was referred to the ED. He reports pain in the LLQ without radiation. He denies fever/chills. He reports drinking "a couple drafts at the club" and normally goes home with "a couple quarts" of beer and this is normally a nightly thing. He states he has never experienced withdrawal from ETOH or seizure activity. He reports he has gone a few days without drinking in the past without issue. Last drink was around 6 PM on 10/04. Has a chronic tremor x "years" but does not appear to be actively withdrawing at this time. Principal Diagnosis acute complicated sigmoid diverticulitis with microperforation and abscess Discharge Exam Constitutional no acute distress, not ill appearing and no altered mental status ENMT external ear and nose normal, oropharynx normal Respiratory normal respiratory effort, lungs clear to auscultation Cardiovascular Rate/Rhythm: regular rate and regular rhythm Heart Sounds: normal S1 and normal S2; no murmur Vessels: posterior tibial pulses present and dorsalis pedis pulses present; no JVD Gastrointestinal (Abdomen) normal bowel sounds, soft, nontender, no hepatosplenomegaly Neurologic resting tremor Psychiatric A+Ox3, euthymic affect Discharge Data Allergies Allergy/AdvReac Type Severity Reaction Status Date / Time morphine Allergy Intermediate SYNCOPE Verified 10/05/18 15:53 Consultations general surgery - Melvin Reyes MD infectious disease - Ashlyn Hodgson DO Ordered Studies 1. CT abd & pelvis #1 - IMPRESSION: 1. Severe sigmoid diverticulitis with evidence of microperforation and small peridiverticular abscesses. 2. CT abd & pelvis #2 - IMPRESSION: 1. Slight interval decrease in inflammatory change associated with the severe complicated diverticulitis of the distal sigmoid colon. Resolution of the fluid components of previously evident peridiverticular abscesses. Extensive granulation tissue/scarring remains with associated peritoneal inflammation. No extraluminal or free gas. 2. Circumferential bladder wall thickening likely reactive to adjacent inflammation. 3. Mildly dilated appendiceal tip, which approaches the pelvic inflammation and is likely secondarily and mildly inflamed. Hospital Course (1) Abscess of sigmoid colon due to diverticulitis: The patient was initially treated with several days of bowel rest, IV flui ds, IV zosyn, and pain medication. The patient received zosyn until time of discharge. He was seen in consult by general surgery, Dr. Melvin Reyes, who provided sandoval recommendations for his care. The patient clinically improved with the above measures. A repeat CT of the abdomen/pelvis later in the stay showed radiographic improvement of the sigmoid colon as well. He was ultimately resumed on a diet and this was advanced as tolerated. The patient's abdominal pain resolved and his stools normalized. At discharge he will follow a low fiber diet and complete a course of oral augmentin twice daily. Close follow-up with Dr. Reyes after discharge was advised. He was counseled heavily to abstain 100% from alcohol if possible. (2) Smoking: nicoderm patch while here. counseled to quit. (3) Alcohol abuse: no signs of withdrawal during the stay. Treated with thiamine/folic acid/MVI and he was given prescriptions for the same at discharge. counseled to cut down or abstain from alcohol if possible. (4) Tremor: likely familial/benign essential tremor. patient advised to consider neurology referral after discharge for treatment. Total Time Total Time Spent Total Time Spent (In Minutes): 30 Total Time Includes: Examination of the Patient, Discharge Planning, Medication Reconciliation and Communication With Other Providers Discharge Plan Discharge Items Patient Disposition: Home - Self-Care Reason For Visit: DIVERTICULITIS Discharge Diagnosis: diverticulitis complicated by abscess formation and microperforation - improved Discharge Goals: Decrease discomfort, Diagnostic testing, Improve disease control and Therapeutic intervention Activity: Resume your previous activity Non-emergency contact: Primary Care Provider and Surgeon Call non-emergency contact if: you have any medication questions, your symptoms worsen, your pain is not controlled, your pain is worsening and your temperature is above 100.5 Follow-up/Referrals: Melvin Reyes MD, FACS [Surgeon] - 11/06/18 9:50 am (Please, follow up at [facility] General Surgery Office with Dr. Melvin Reyes on MondayNovember 06 at 9:50 am. *This office is located at [address] [facility] in [place]. If you need to change this appointment, call the office at [phone].) Mey Herman, [Primary Care Provider] - 10/19/18 9:50 am (Please, follow up at Dr. Mey Herman's office with her associate, Mindi MINOR, on MondayOctober 19 at 9:50 am. *If you need to change this appointment, call their office at [phone].) Diet: Low Fiber Addtl Provider Instructions: From Baudilio Hurd - Hospitalist: You were treated for sigmoid diverticulitis over your 10-day stay. The diverticulitis was complicated by abscess formation (pus pocket) and microperforation (small holes that developed in the lining of the colon allowing air to escape). You improved with antibiotics and time. At this time we recommend: 1. 14-day course of oral antibiotics (amoxicillin-clavulanate) twice a day. Take your first dose TONIGHT. 2. 14-day course of probiotics (saccharomyces). Take 1 capsule daily. 3. Take folic acid and thiamine supplements for 30 days then stop. 4. Take a multivitamin daily indefinitely. 5. ABSTAIN 100% FROM ALCOHOL IF POSSIBLE. CONTINUED ALCOHOL USE WILL MAKE IT HARDER FOR YOUR BODY TO HEAL FROM THE DIVERTICULITIS. 6. Talk to your family doctor about how to quit smoking. 7. Follow-up - see your family doctor in [address] Reyes from surgery in 2- 3 weeks. 8. Return to [facility] if - * you have fevers over 100.5 degrees * you have recurrent abdominal pain * you have severe diarrhea * you have vomiting * any other concerns 9. If desired talk to your family doctor about getting a referral to a neurologist for your tremors. 10. Diet -- follow a low fiber diet for 2 weeks. High fiber foods include certain cereals, oatmeal, excessive amounts of fruits/veggies, beans, etc. Prescriptions: New thiamine HCl (vitamin B1) [Vitamin B-1] 100 mg Tablet 200 mg PO QAM Qty: 60 RF: 0 folic acid 1 mg Tablet 1 mg PO QAM Qty: 30 RF: 0 multivitamin,tx-minerals tablet 1 tab PO DAILY Qty: 90 RF: 3 amoxicillin-pot clavulanate [Augmentin] 875-125 mg tablet 1 tab PO BID 14 Days Qty: 28 RF: 0 Saccharomyces boulardii 250 mg capsule 250 mg PO DAILY 14 Days Qty: 14 RF: 0 No Action No Known Home Medications RF: 0 Visit Report Forms: Smoking Cessation Stand-Alone Forms: [facility], Work/School Release (Inpt) Krames/Other Patient Handouts: Diverticulosis Diverticulitis Discharge Orders: Discharge Order (Routine); Ordered 10/15/18 Ordered By: Baudilio Hurd Admission Data Admit Date/Time: 10/05/18 15:50 Attending Provider: Baudilio Hurd Admit Provider: Baudilio Hurd Primary Care Provider: Mey Herman Other Providers: Tenzin Rizo ; Ashlyn Hodgson ; Melvin Reyes ; Baudilio Hurd Service: Surgical Services Other Interventions: Discharge Summary Assessment (RN) Last Done: 10/11/18 08:45 Pending Studies at Discharge: No DC Date/Time DO NOT enter until pt leaves facility: 10/15/18 13:46
== END 2018-10-15 13:46 | disposition home or self-care (01) | DRG 392 ==
LOC: ED 13:34 → SUATTDRO 15:50 → 3N 15:50

== ENCOUNTER 2019-01-03 07:09 | Inpatient (IN) ==
--- NOTE | 2018-12-25 09:33 | Anesthesiology Consultation ---
Date of Service December 25, 2018 Assessment & Plan (1) Encounter for pre-operative examination: Chart Review Chart Review: Acceptable Risk for Surgery and Patient seen in Pre Admission Testing Teaching & Discussion Pre-Anesthesia Teaching/Discussion Notes: Instructed NPO after midnight before surgery,except medications with 15 cc of water. Medication instructions provided according to the PAT guidelines. History Surgery Operation Date: 01/03/19 08:20 Proposed Procedures p Laparoscopic Assisted Sigmoid Colon Resection - Melvin Reyes MD, FACS Height/Weight Height: 5 ft 6 in Weight: 66.1 kg Allergies Allergy/AdvReac Type Severity Reaction Status Date / Time morphine AdvReac Unknown SYNCOPE Verified 12/25/18 09:38 Medications Home Medications Medication Instructions Recorded Confirmed Last Taken No Known Home Medications 10/05/18 12/24/18 Unknown Past Medical History Medical History Abscess of sigmoid colon due to diverticulitis 11/2018 S/P ABX Tremor BENIGN ESSENTIAL TREMOR- B/L HANDS Exercise / Class Metabolic Activity III < 4 Walking/Shop/Light housework Past Family History Family History Mother Family hx of colon cancer Past Surgical History Surgical History History of cholecystectomy History of ERCP History of colonoscopy 12/03/18: MAC sedation at [facility] History of tonsillectomy History of tooth extraction Past Anesthesia History No Hx of Anesthesia Complications and No Family Hx of Anesthesia Complications History of PONV No Hx of PONV and No Hx of Motion Sickness Social History Smoking Status: Current every day smoker tobacco type: cigarettes Smoking cigarettes per day: 1 PPD X 40 YEARS Do You Dip or Chew Tobacco: No (HX; QUIT MANY YEARS AGO) Hx Alcohol Use: Yes Alcohol type: beer alcohol intake frequency: other Alcohol Intake Frequency Comment: 6 PACK/DAY; ETOH ABUSE HX Hx Substance Use: No substance use type: does not use Review of Systems Patient denies chest pain, shortness of breath, cough, wheezing, palpitations. Physical Exam Vital Signs VITALS BP 101/63 P 76 TEMP 97.9 SP02 99%RA RESP 18 PHYSICAL Full neck and c-spine range of motion. Full TMJ range of motion. TMD 3 finger breaths Mallampati Score 2 Dentition: missing sides/molars; poor dentition Lungs: clear throughout to auscultation Cardiac: regular rate and rhythm, no murmurs noted Spine: normal Carotid arteries: negative bruit Extremities: no edema Trimmed louis Testing Laboratory Results 12/25/18 09:52 12/25/18 09:52 12/25/18 09:52 Blood Type A Positive Antibody Screen NEGATIVE Electrocardiogram Date: 12/25/18 NSR at 65bpm. iRBBB.
[2018-12-25 11:32] LABS: Basophils # (auto) 0.08 K/uL (0-0.2); Eosinophils % (auto) 2.5 %; Hematocrit (blood only) 43.1 % (42-52); Hemoglobin 14.7 g/dL (14.0-18.0); Immature Granulocytes # (auto) 0.02 K/uL (0.00-0.02); Immature Granulocytes % (auto) 0.3 %; Lymphocytes % (auto) 17.5 %; Mean Corpuscular Hgb Conc 34.1 g/dL (32-36); Mean Corpuscular Volume 90.5 fL (80-100); Mean Platelet Volume 9.2 fL (7.4-10.4); Monocytes # (auto) 0.74 K/uL (0.11-0.59); Monocytes % (auto) 9.3 %; Neutrophils # (auto) 5.54 K/uL (1.4-6.5); Neutrophils % (auto) 69.4 %; Platelet Count 255 K/uL (130-400); RDW Coefficient of Variation 16.5 % (11.5-14.5); RDW Standard Deviation 55.3 fL (36.4-46.3); Red Blood Count 4.76 M/uL (4.7-6.1); White Blood Count 7.98 K/uL (4.8-10.8)
[2018-12-25 11:33] LABS: BUN Creatinine Ratio 13.4 (10-20); Calcium 9.3 mg/dl (8.5-10.1); Creatinine Clr Calc Pharmacy 87.5 ml/min; Est GFR (African American) 112.2; Est GFR (Non-African American) 96.8; Potassium 3.9 mmol/L (3.5-5.1)
[~2019-01-03 07:09] MED LIST changes: -CLBCRM30 EXT; +LR 15ML/HR IV SCH; -PRED20TA PO; -SKINCRE34 TOP; +cefOXitin 2,000 MG in DEXTROSE 5% 50 ML IV SCH
[2019-01-03] MEDS ORDERED: DEXAMETHASONE SOD INJ 4 MG/ML VIAL ONE (07:50)
[2019-01-03] MEDS ORDERED: NEOSTIGMINE METHYLSULFATE 5 MG/5 ML SYR ONE (07:50)
[2019-01-03] MEDS ORDERED: ONDANSETRON INJ 2 MG/ML 2 ML VIAL ONE (07:50)
[2019-01-03] MEDS ORDERED: PROPOFOL IV EMULSION 10 MG/ML 20 ML VIAL IV ONE (07:50)
[2019-01-03] MEDS ORDERED: GLYCOPYRROLATE 0.2 MG/ML VIAL ONE (07:50)
[2019-01-03] MEDS ORDERED: LIDOCAINE HCL 2% 2 ML VIAL/AMP(20MG/ML) INFIL ONE (07:50)
[2019-01-03] MEDS ORDERED: fentaNYL citrate 100 MCG/2 ML VIAL ONE ×2 (07:51)
[2019-01-03] MEDS ORDERED: MIDAZOLAM HCL 1 MG/ML 2ML VIAL ONE (07:51)
[2019-01-03] MEDS ORDERED: ePHEDrine sulfate 50 MG/ML AMP IV PRN (07:57)
[2019-01-03] MEDS ORDERED: ONDANSETRON INJ 2 MG/ML 2 ML VIAL IV PRN ×2 (07:57→12:27)
[2019-01-03] MEDS ORDERED: ATROPINE SULFATE 0.1 MG/ML 10ML SYR IV PRN (07:57)
[2019-01-03] MEDS ORDERED: HYDROmorphone INJ 1 MG/ML SYRINGE IV PRN (08:05)
[2019-01-03] MEDS ORDERED: BUPIVACAINE 0.5 % 5 MG/1 ML MPF 30ML VIAL ONE (08:44)
[2019-01-03] MEDS ORDERED: HYDROmorphone INJ 2 MG/ML SYR/VIAL ONE (10:05)
[2019-01-03] MEDS ORDERED: ePHEDrine sulfate 50 MG/ML SYR ONE (10:09)
[2019-01-03] MEDS ORDERED: ROCURONIUM BROMIDE 10 MG/ML 5 ML VIAL ONE (10:30)
[2019-01-03] MEDS ORDERED: CEFAZOLIN 250 MG/ML 1 GM VIAL ONE (10:42)
[2019-01-03] MEDS ORDERED: ACETAMINOPHEN 1,000 MG/100 ML VIAL IV ONE (11:11)
--- NOTE | 2019-01-03 11:11 | Operative Report ---
Post Operative Report Pre & Post Diagnosis Operation Date: 01/03/19 08:20 Pre-Op Diagnosis: Diverticulitis Post-Op Diagnosis: Diverticulitis, severe adhesions Procedure Operation Date: 01/03/19 08:20 Actual Procedures p Laparoscopic Assisted Sigmoidcolectomy, Lysis of Adhesions, Appendectomy - Melvin Reyes MD, FACS Surgeon Melvin Reyes MD, FACS Digital Sales Planner [place] Estimated Blood Loss 50 Findings Consistent with Post-Op Diagnosis Specimens appendix and sigmoid colon Description of Procedure see dictation I attest to the content of the Intraoperative Record and any orders documented therein. Any exceptions are noted below.
[2019-01-03] MEDS ORDERED: ACETAMINOPHEN 1000 MG/100 ML IV IV ONE (11:22)
[2019-01-03] MEDS: fentaNYL citrate 100 MCG/2 ML VIAL IV PRN ×4 (11:24→11:39)
--- NOTE | 2019-01-03 12:24 | Operative Report ---
DATE OF OPERATION: 01/03/2019 NAME OF OPERATION: Laparoscopic assisted sigmoid colectomy with enterolysis and appendectomy. PREOPERATIVE DIAGNOSIS: History of diverticulitis. POSTOPERATIVE DIAGNOSES: History of diverticulitis with adhesions. STAFF SURGEON: Melvin Reyes MD. 911 EMERGENCY DISPATCHER: Dimitrios Lyons PA-C ANESTHESIA: General. DESCRIPTION OF PROCEDURE: The patient was brought in the operating room and placed on the operating table in supine position. Pneumatic stockings, orogastric tube and Salguero catheter were placed. His abdomen was prepped and draped in usual fashion. Initially, incision was made just below the umbilicus, carrying dissection down to the fascia, placing a Veress needle producing pneumoperitoneum. An 11 mm port was placed at this level. Then, under visualization, a 5 mm port placed in left lower quadrant and right lateral. The patient had relatively significant adhesions in the pelvis of the omentum to the abdominal wall. We did dissect along the sigmoid colon and descending colon along the white line of Toldt up towards the spleen mobilizing the colon medially. At this point, we made an incision below the umbilicus, carrying dissection down into the abdomen encountering significant adhesions of the omentum and small bowel to the colon as well as the omentum to the bladder and also the sigmoid colon torsed upon itself. We gradually mobilized the omentum away from the pelvis. The appendix was also adherent to the colon and somewhat inflamed from chronic inflammation. We did perform an appendectomy, transecting and ligating the mesoappendix using 2-0 silk suture and then the base of the appendix using 2-0 chromic suture. The descending colon was transected between it and the sigmoid colon using the ISA stapler, and then with some difficulty, the sigmoid was mobilized. It was densely adherent in the pelvis. There was no overt abscess. Vessels were oversewn using 0 chromic suture and 2-0 silk ties as well as the LigaSure. We did transect the rectosigmoid using the electrocautery. The specimen was sent for pathology. The stapled end was proximal. At this point, after appropriate hemostasis and irrigation, an end-to-end anastomosis of the descending colon to the rectum was performed in 2 layers with a mucosal layer of 2-0 chromic suture and then a seromuscular layer of interrupted 3-0 silk suture. The site was irrigated with antibiotic solution, a 15 round David-Lees drain placed through the left lower quadrant, 5 mm port site into the pelvis secured using 3-0 nylon suture. The posterior fascia and peritoneum reapproximated using running #1 chromic suture. Anterior fascia reapproximated using running #1 PDS suture. Quarter-inch Stowell drain placed in the subcutaneous space, secured to the skin using 4-0 nylon suture. Skin reapproximated using jany. The patient was transferred to recovery room in stable condition. My assistant pastry chef helped with prepping, draping, removal of the colon, appendectomy, lysis of adhesions and closure of the wound. I attest to the content of the Intraoperative Record and any orders documented therein. Any exception s are noted below.
[2019-01-03] MEDS ORDERED: HYDROmorphone INJ 0.5 MG/0.5 ML SYR IV PRN (12:27)
[2019-01-03] MEDS ORDERED: PROMETHAZINE HCL 25 MG in SODIUM CHLORIDE 0.9% 50 ML IV PRN (12:27)
[2019-01-03] MEDS ORDERED: PROMETHAZINE HCL 12.5 MG in SODIUM CHLORIDE 0.9% 50 ML IV PRN (12:27)
[2019-01-03 13:08] LABS: Basophils # (auto) 0.01 K/uL (0-0.2); Basophils % (auto) 0.1 %; Hemoglobin 14.5 g/dL (14.0-18.0); Immature Granulocytes # (auto) 0.08 K/uL (0.00-0.02); Immature Granulocytes % (auto) 0.4 %; Lymphocytes # (auto) 0.49 K/uL (1.2-3.4); Lymphocytes % (auto) 2.7 %; Mean Corpuscular Hgb Conc 33.7 g/dL (32-36); Mean Corpuscular Volume 91.3 fL (80-100); Mean Platelet Volume 8.9 fL (7.4-10.4); Monocytes # (auto) 0.58 K/uL (0.11-0.59); Monocytes % (auto) 3.2 %; Neutrophils # (auto) 16.91 K/uL (1.4-6.5); Neutrophils % (auto) 93.6 %; Platelet Count 236 K/uL (130-400); RDW Coefficient of Variation 15.5 % (11.5-14.5); RDW Standard Deviation 52.5 fL (36.4-46.3); Red Blood Count 4.71 M/uL (4.7-6.1); White Blood Count 18.07 K/uL (4.8-10.8)
[2019-01-03] MEDS: D5W AND 1/2NSS + 20MEQ KCL 20 MEQ/1,000 ML BAG IV SCH ×2 (14:17→21:54)
--- NOTE | 2019-01-03 14:42 | Anesthesiology Progress Note ---
Date of Service January 03, 2019 Anesthesia Post Procedure Vital Signs Vital Signs: Temp Pulse Pulse Resp BP BP Pulse Ox 01/03/19 14:11 36.8 C 66 16 124/79 96 01/03/19 13:15 68 16 120/74 95 01/03/19 12:40 69 14 110/73 95 01/03/19 12:10 36.6 C 65 14 126/73 100 01/03/19 12:00 70 16 117/77 97 01/03/19 11:45 36.6 C 71 16 107/72 100 01/03/19 11:35 69 16 119/60 100 01/03/19 11:25 72 16 123/68 100 01/03/19 11:19 36.4 C L 78 16 113/79 100 01/03/19 07:32 36.7 C 97 H 20 123/78 98 Pain Intensity Abdomen: Pain Intensity: 6 Transfer of Care Handoff Completed per policy Notes Mental Status: alert / awake / arousable and participated in evaluation Patient Amnestic to Procedure: Yes Nausea / Vomiting: adequately controlled Pain: adequately controlled Airway Patency, RR, SpO2: stable & adequate BP & HR: stable & adequate Hydration State: stable & adequate Anesthetic Complications: no major complications apparent and Pt Satisfied with anesthetic care
--- NOTE | 2019-01-03 17:38 | Consultation ---
Date of Consultation January 03, 2019 Assessment & Plan (1) Post-operative state: post colon resection 01/03 for diverticulosis with recent complicated diverticulitis bowel regimen, pain control, dvt proph per primary Monitor for acute blood loss - cbc am (2) Smokin year pack history Smoking cessation education (3) Alcohol abuse: Drinks six beers a day Monitor for alcohol withdrawal AWSS History of Present Illness Mr. Kaur is still drowsy from surgery. Reports he's sore but pain is well controlled. No other complaints. Pmhx: cholecystitis, cellulitis Social: works at [employer], smoker since age 18 1 ppd, drinks 6 beers per day, Attending Physician: Melvin Reyes MD, FACS Allergies Allergy/AdvReac Type Severity Reaction Status Date / Time morphine AdvReac Unknown SYNCOPE Verified 01/03/19 07:31 Home Medications Home Medications Medication Instructions Recorded Confirmed Type No Known Home Medications 10/05/18 12/24/18 History Patient History Medical History Abscess of sigmoid colon due to diverticulitis 11/2018 S/P ABX Tremor BENIGN ESSENTIAL TREMOR- B/L HANDS Surgical History History of cholecystectomy History of ERCP History of colonoscopy 12/03/18: MAC sedation at [facility] History of tonsillectomy History of tooth extraction Family History Mother Family hx of colon cancer Social History Preferred Language: Stateless Communication Ability: Effective Merchandise Handler Required: No Beliefs That Will Affect Care: None Current Living Situation: Alone Current Living Situation Comment: has roommate Other Information That Helps Us Care for You: No Feels Safe at Home: Yes Smoking Status: Current every day smoker Tobacco Type: cigarettes Cigarettes Per Day: 1 PPD X 40 YEARS Do You Dip or Chew Tobacco: No (HX; QUIT MANY YEARS AGO) Second Hand Exposure: No Hx Alcohol Use: Yes Alcohol type: beer Hx Substance Use: No Review of Systems Review of Systems: All systems reviewed & are unremarkable except as noted in HPI & below Physical Exam Physical Exam: General: no distress Eyes: normal inspection, PERLL Respiratory: chest non tender, clear to auscultation, normal breath sounds, no respiratory distress, no accessory muscle use Cardiac: regular rate and rhythm, no rub or gallop, no murmur, no edema, no jvd GI/: active bowel sounds, no abd pain or tenderness, soft, non distended Extremities: normal range of motion, normal strength, non tender Neuro/Psych: alert and oriented x 3, normal mood and affect Skin: normal color, dry Results & Data Vital Signs (Past 12 Hours) Vital Signs Temp Pulse Pulse Resp BP BP Pulse Ox 01/03/19 15:24 36.7 C 84 18 122/73 98 01/03/19 14:11 36.8 C 66 16 124/79 96 01/03/19 13:15 68 16 120/74 95 01/03/19 12:40 69 14 110/73 95 01/03/19 12:10 36.6 C 65 14 126/73 100 01/03/19 12:00 70 16 117/77 97 01/03/19 11:45 36.6 C 71 16 107/72 100 01/03/19 11:35 69 16 119/60 100 01/03/19 11:25 72 16 123/68 100 01/03/19 11:19 36.4 C L 78 16 113/79 100 01/03/19 07:32 36.7 C 97 H 20 123/78 98
[2019-01-03] MEDS: THIAMINE HCL 100 MG TAB PO SCH (20:00)
[2019-01-03] MEDS: HYDROmorphone INJ 1 MG/ML SYRINGE IV PRN (20:00)
[2019-01-03] MEDS: NICOTINE 21 MG/24 HR TDSY TD SCH (20:00)
[2019-01-04] MEDS: HYDROmorphone INJ 1 MG/ML SYRINGE IV PRN ×2 (03:16→21:16)
[2019-01-04 06:25] LABS: Basophils # (auto) 0.02 K/uL (0-0.2); Basophils % (auto) 0.2 %; Eosinophils # (auto) 0.03 K/uL (0-0.5); Eosinophils % (auto) 0.2 %; Hematocrit (blood only) 41.4 % (42-52); Hemoglobin 13.9 g/dL (14.0-18.0); Immature Granulocytes # (auto) 0.04 K/uL (0.00-0.02); Immature Granulocytes % (auto) 0.3 %; Lymphocytes # (auto) 1.34 K/uL (1.2-3.4); Lymphocytes % (auto) 10.7 %; Mean Corpuscular Hgb Conc 33.6 g/dL (32-36); Mean Corpuscular Volume 90.6 fL (80-100); Mean Platelet Volume 9.2 fL (7.4-10.4); Monocytes % (auto) 10.4 %; Neutrophils # (auto) 9.75 K/uL (1.4-6.5); Neutrophils % (auto) 78.2 %; Platelet Count 243 K/uL (130-400); RDW Coefficient of Variation 15.7 % (11.5-14.5); RDW Standard Deviation 52.5 fL (36.4-46.3); Red Blood Count 4.57 M/uL (4.7-6.1); White Blood Count 12.48 K/uL (4.8-10.8)
[2019-01-04 06:37] LABS: Partial Thromboplastin Time 27.8 Seconds (21.0-31.0)
--- NOTE | 2019-01-04 06:52 | Progress Note ---
Date of Service January 04, 2019 Assessment & Plan (1) S/P colectomy: cont ice only, IV atbx, law for now- possibly d/c later today possible sips tomorrow- leave drains, mobilize/ walk sub cu Heparin- overall stable. Dr Vincent covering over weekend Subjective vitals stable, pt awake , alert good ur output, drain- serosang, H/H stable Physical Exam Physical Exam: awake, alert abd soft, dressing in place law in place Results & Data Vital Signs (Past 12 Hours) Vital Signs Temp Pulse Resp BP Pulse Ox 01/04/19 03:27 36.9 C 81 16 119/79 92 01/03/19 23:19 36.5 C 74 16 133/79 96 01/03/19 19:32 36.8 C 71 16 138/88 98
[2019-01-04 07:03] LABS: Albumin Level 2.9 gm/dl (3.4-5.0); BUN Creatinine Ratio 7.6 (10-20); Calcium 7.9 mg/dl (8.5-10.1); Creatinine Clr Calc Pharmacy 90.3 ml/min; Est GFR (African American) 113.9; Est GFR (Non-African American) 98.3
[2019-01-04 07:06] LABS: Albumin Globulin Ratio 0.8 (0.9-2); Bilirubin,Total 0.5 mg/dl (0.2-1); Globulin 3.7 gm/dl (2.5-4.0); Phosphorus 2.6 mg/dl (2.5-4.9); Total Protein 6.6 gm/dl (6.4-8.2)
[2019-01-04] MEDS: D5W AND 1/2NSS + 20MEQ KCL 20 MEQ/1,000 ML BAG IV SCH ×3 (07:14→23:20)
[2019-01-04 07:15] LABS: INR 1.1 (0.9-1.1); Prothrombin Time 11.5 Seconds (9.0-12.0)
--- NOTE | 2019-01-04 07:56 | Anesthesiology Progress Note ---
Date of Service January 04, 2019 Anesthesia Post Procedure Vital Signs Vital Signs: Temp Pulse Pulse Resp BP Pulse Ox 01/04/19 03:27 36.9 C 81 16 119/79 92 01/03/19 23:19 36.5 C 74 16 133/79 96 01/03/19 19:32 36.8 C 71 16 138/88 98 01/03/19 15:24 36.7 C 84 18 122/73 98 01/03/19 14:11 36.8 C 66 16 124/79 96 01/03/19 13:15 68 16 120/74 95 01/03/19 12:40 69 14 110/73 95 01/03/19 12:10 36.6 C 65 14 126/73 100 01/03/19 12:00 70 16 117/77 97 01/03/19 11:45 36.6 C 71 16 107/72 100 01/03/19 11:35 69 16 119/60 100 01/03/19 11:25 72 16 123/68 100 01/03/19 11:19 36.4 C L 78 16 113/79 100 Pain Intensity Abdomen: Pain Intensity: 2 Notes Mental Status: alert / awake / arousable and participated in evaluation Nausea / Vomiting: adequately controlled Pain: adequately controlled Airway Patency, RR, SpO2: stable & adequate BP & HR: stable & adequate Hydration State: stable & adequate
[2019-01-04] MEDS: FOLIC ACID 1 MG in SYRINGE 9.8 ML IV SCH (08:41)
[2019-01-04] MEDS: HEPARIN SOD 5,000 UNIT/0.5 ML VIAL SQ SCH ×2 (08:44→21:07)
[2019-01-04] MEDS: NICOTINE 21 MG/24 HR TDSY TD SCH (08:45)
[2019-01-04] MEDS: THIAMINE HCL 100 MG TAB PO SCH (08:46)
[2019-01-04] MEDS ORDERED: LORazepam 0.25 MG/0.5 ML VIAL IV PRN (10:37)
--- NOTE | 2019-01-04 10:44 | Hospitalist Progress Note ---
Date of Service January 04, 2019 Assessment & Plan (1) Post-operative state: post colon resection 01/03 for diverticulosis with recent complicated diverticulitis bowel regimen, pain control, dvt proph per primary (2) Smokin year pack history Smoking cessation education (3) Alcohol abuse: Drinks six beers a day Monitor for alcohol withdrawal AWSS has been around 2 for tremors although patient reports always having them - prn ativan, can consider a librium taper if he gets worse. Subjective Mr. Kaur is very sore in his belly but otherwise has no complaints. He has bilateral hand tremors but reports he always has a tremor. AWSS has been 1-2. Review of Systems Review of Systems: All systems reviewed & are unremarkable except as noted in HPI & below Physical Exam Physical Exam: General: no distress Eyes: normal inspection, PERLL Respiratory: chest non tender, clear to auscultation, normal breath sounds, no respiratory distress, no accessory muscle use Cardiac: regular rate and rhythm, no rub or gallop, no murmur, no edema, no jvd GI/: active bowel sounds, no abd pain or tenderness, soft, non distended Extremities: normal range of motion, normal strength, non tender Neuro/Psych: alert and oriented x 3, normal mood and affect Skin: normal color, dry Results & Data Vital Signs (Past 12 Hours) Vital Signs Temp Pulse Pulse Resp BP Pulse Ox 01/04/19 07:51 36.8 C 69 19 120/78 96 01/04/19 03:27 36.9 C 81 16 119/79 92 01/03/19 23:19 36.5 C 74 16 133/79 96
[2019-01-05 05:40] LABS: Basophils # (auto) 0.03 K/uL (0-0.2); Basophils % (auto) 0.3 %; Eosinophils # (auto) 0.16 K/uL (0-0.5); Eosinophils % (auto) 1.7 %; Hematocrit (blood only) 39.8 % (42-52); Hemoglobin 13.2 g/dL (14.0-18.0); Immature Granulocytes # (auto) 0.01 K/uL (0.00-0.02); Immature Granulocytes % (auto) 0.1 %; Lymphocytes # (auto) 1.39 K/uL (1.2-3.4); Lymphocytes % (auto) 14.9 %; Mean Corpuscular Hgb Conc 33.2 g/dL (32-36); Mean Corpuscular Volume 91.5 fL (80-100); Mean Platelet Volume 9.1 fL (7.4-10.4); Monocytes # (auto) 1.03 K/uL (0.11-0.59); Monocytes % (auto) 11.1 %; Neutrophils % (auto) 71.9 %; Platelet Count 218 K/uL (130-400); RDW Coefficient of Variation 15.3 % (11.5-14.5); RDW Standard Deviation 52.1 fL (36.4-46.3); Red Blood Count 4.35 M/uL (4.7-6.1); White Blood Count 9.32 K/uL (4.8-10.8)
[2019-01-05 05:50] LABS: INR 1.1 (0.9-1.1); Prothrombin Time 10.9 Seconds (9.0-12.0)
[2019-01-05 06:13] LABS: Albumin Level 2.9 gm/dl (3.4-5.0); BUN Creatinine Ratio 4.8 (10-20); Calcium 8.3 mg/dl (8.5-10.1); Creatinine Clr Calc Pharmacy 93.8 ml/min; Est GFR (African American) 115.7; Est GFR (Non-African American) 99.9; Magnesium 2.2 mg/dl (1.8-2.4); Potassium 3.8 mmol/L (3.5-5.1)
[2019-01-05 06:15] LABS: Albumin Globulin Ratio 0.8 (0.9-2); Bilirubin,Total 0.5 mg/dl (0.2-1); Globulin 3.7 gm/dl (2.5-4.0); Phosphorus 2.3 mg/dl (2.5-4.9); Total Protein 6.6 gm/dl (6.4-8.2)
--- NOTE | 2019-01-05 08:07 | Surgery Progress Note ---
Date of Service January 05, 2019 Assessment & Plan (1) S/P colectomy: Will begin clears Keep drains IVF to 75cc/hr Ambulate Subjective POD# 2 lap assisted sigmoid colectomy Passing flatus Good pain control Review of Systems Constitutional: no fever and no chills Respiratory: no problem reported Cardiovascular: no chest pain Gastrointestinal: + abdominal pain (post-op); no nausea and no vomiting Physical Exam Constitutional: WD/WN, vitals as above Respiratory: normal respiratory effort, lungs clear to auscultation Cardiovascular: RRR, no murmur, no edema Gastrointestinal (Abdomen): Inspection/Auscultation: normal bowel sounds; abdomen not distended Percussion/Palpation: + abdomen tender (mild) and abdomen soft Skin: no rashes, warm and dry Results & Data Vital Signs (Past 12 Hours) Vital Signs Temp Pulse Resp BP Pulse Ox 01/05/19 03:45 36.8 C 68 16 125/74 96 01/04/19 23:20 36.8 C 71 14 119/74 95
[2019-01-05] MEDS: D5W AND 1/2NSS + 20MEQ KCL 20 MEQ/1,000 ML BAG IV SCH ×2 (08:42→20:50)
[2019-01-05] MEDS: FOLIC ACID 1 MG in SYRINGE 9.8 ML IV SCH (08:42)
[2019-01-05] MEDS: NICOTINE 21 MG/24 HR TDSY TD SCH (08:43)
[2019-01-05] MEDS: THIAMINE HCL 100 MG TAB PO SCH (08:43)
[2019-01-05] MEDS: HEPARIN SOD 5,000 UNIT/0.5 ML VIAL SQ SCH ×2 (08:45→20:50)
--- NOTE | 2019-01-05 11:20 | Hospitalist Progress Note ---
Date of Service January 05, 2019 Assessment & Plan (1) Post-operative state: post colon resection 01/03 for diverticulosis with recent complicated diverticulitis bowel regimen, pain control, dvt proph per primary (2) Smokin year pack history Smoking cessation education (3) Alcohol abuse: Drinks six beers a day Monitor for alcohol withdrawal AWSS has been around 2 for tremors although patient reports always having them - prn ativan, can consider a librium taper if he gets worse. Medicine will sign off at this time. Please let us know if we can be of service in the future. Subjective Mr. Kaur is up to a chair, continues to be sore at his incision site but otherwise has no complaints. Review of Systems Review of Systems: All systems reviewed & are unremarkable except as noted in HPI & below Physical Exam Physical Exam: General: no distress Eyes: normal inspection, PERLL Respiratory: chest non tender, clear to auscultation, normal breath sounds, no respiratory distress, no accessory muscle use Cardiac: regular rate and rhythm, no rub or gallop, no murmur, no edema, no jvd GI/: active bowel sounds, tender abdomen, soft, non distended Extremities: normal range of motion, normal strength, non tender Neuro/Psych: alert and oriented x 3, normal mood and affect Skin: normal color, dry Results & Data Vital Signs (Past 12 Hours) Vital Signs Temp Pulse Pulse Resp BP Pulse Ox 01/05/19 07:55 36.8 C 72 16 116/68 94 01/05/19 03:45 36.8 C 68 16 125/74 96 01/04/19 23:20 36.8 C 71 14 119/74 95
[2019-01-06] MEDS: THIAMINE HCL 100 MG TAB PO SCH (08:13)
[2019-01-06] MEDS: HEPARIN SOD 5,000 UNIT/0.5 ML VIAL SQ SCH ×2 (08:13→20:23)
[2019-01-06] MEDS: FOLIC ACID 1 MG in SYRINGE 9.8 ML IV SCH (08:14)
[2019-01-06] MEDS: NICOTINE 21 MG/24 HR TDSY TD SCH (08:14)
[2019-01-06] MEDS: D5W AND 1/2NSS + 20MEQ KCL 20 MEQ/1,000 ML BAG IV SCH (08:15)
--- NOTE | 2019-01-06 08:51 | Surgery Progress Note ---
Date of Service January 06, 2019 Assessment & Plan (1) S/P colectomy: POD #3 Positive BM Advance diet to fulls Decrease IVF to 50cc/hr Good progress possibly home tomorrow if does well Subjective Pain controlled Eating well No nausea or vomiting Drain minimal output Review of Systems Respiratory: no dyspnea Cardiovascular: no chest pain Gastrointestinal: + abdominal pain (mild with movement) Genitourinary: no problem reported (good output) Physical Exam Constitutional: no acute distress Respiratory: normal respiratory effort, lungs clear to auscultation Cardiovascular: RRR, no murmur, no edema Gastrointestinal (Abdomen): Inspection/Auscultation: normal bowel sounds; abdomen not distended Percussion/Palpation: + abdomen tender (mild); no guarding incision clean and dry; emmanuel in place Musculoskeletal: Head/Neck/Chest: normocephalic and head atraumatic Skin: no rashes, warm and dry Results & Data Vital Signs (Past 12 Hours) Vital Signs Temp Pulse Resp BP Pulse Ox 01/06/19 06:57 36.7 C 77 19 99/65 L 95 01/05/19 23:02 36.8 C 55 L 16 113/70 94
[2019-01-07] MEDS: D5W AND 1/2NSS + 20MEQ KCL 20 MEQ/1,000 ML BAG IV SCH (05:51)
[2019-01-07] MEDS ORDERED: HYDROCODONE/ACETAMOPHEN 5/325MG TAB PO PRN ×2 (06:10)
--- NOTE | 2019-01-07 06:13 | Progress Note ---
Date of Service January 07, 2019 Assessment & Plan (1) S/P colectomy: will adv to low fiber and plan d/c tomorrow d/c drains prior to d/c ?/ visiting nurse for wound care Subjective padmini full liquids, pos bm vitals stable Physical Exam Physical Exam: abd soft, active bs DANNY- serous Results & Data Vital Signs (Past 12 Hours) Vital Signs Temp Pulse Resp BP Pulse Ox 01/06/19 23:46 36.6 C 63 20 106/73 96
[2019-01-07] MEDS: NICOTINE 21 MG/24 HR TDSY TD SCH (07:46)
[2019-01-07] MEDS: THIAMINE HCL 100 MG TAB PO SCH (07:46)
[2019-01-07] MEDS: HEPARIN SOD 5,000 UNIT/0.5 ML VIAL SQ SCH ×2 (07:47→21:04)
[2019-01-07] MEDS: FOLIC ACID 1 MG in SYRINGE 9.8 ML IV SCH (07:47)
[2019-01-08] MEDS: FOLIC ACID 1 MG in SYRINGE 9.8 ML IV SCH (07:31)
[2019-01-08] MEDS: HEPARIN SOD 5,000 UNIT/0.5 ML VIAL SQ SCH (07:31)
[2019-01-08] MEDS: NICOTINE 21 MG/24 HR TDSY TD SCH (07:32)
[2019-01-08] MEDS: THIAMINE HCL 100 MG TAB PO SCH (08:00)
--- NOTE | 2019-01-08 08:09 | Discharge Summary ---
PRINCIPAL DIAGNOSIS: Status post partial colectomy for diverticulitis. HISTORY OF PRESENT ILLNESS: The patient is a 58-year-old male who has a history of severe complicated diverticulitis who has undergone conservative treatment, but now brought into the hospital for definitive surgery. HOSPITAL COURSE: The patient was taken to the operating room on 01/03/2019, where he underwent laparoscopy-assisted open sigmoid colectomy which he tolerated well and has progressed well in both diet and activity and is felt stable for discharge home today to be followed in the surgical clinic within 1 week.
== END 2019-01-08 10:57 | disposition home or self-care (01) | DRG 331 ==
LOC: ASU 07:09 → 3W 11:11